=== PATIENT | female | born 1955 | race Caucasian/White ===

== ENCOUNTER 2016-06-21 14:52 | Emergency (ER) | payer MEDICARE ==
[~2016-06-21 14:52] MED LIST: Magnesium Sulfate 1 GM/2 ML VIAL*** 2 GM in Sodium Chloride 0.9% 100 ML IVPB 100 ML IV ONE
[2016-06-21] MEDS ORDERED: Sodium Chloride 0.9% 1000 ML 1,000 ML IV STA (16:12)
--- NOTE | 2016-06-21 16:19 | ERPHSYRPT ---
- History of Present Illness Time Seen by Provider: 06/21/16 16:05 Source: patient Exam Limitations: no limitations Patient Subjective Stated Complaint: pt states she has felt weak for the past 2 days. pt states she has an order at infusion center for fluids but felt to weak to go to infusion center. pt was instructed to come to er for evaluation. Triage Nursing Assessment: pt pale, warm, dry. mucus membranes moist. pt needed help to bed. Physician History: 61 y/o female with history of PUD with multiple surgeries, as well as history of hypokalemia and hypomagnesemia sent from the infusion center for weakness, dehydration and few episodes of nausea and vomiting. Pt usually receives IV potassium and magnesium. Pt also admits to feeling dizzy and confused. Timing/Duration: yesterday Severity: moderate Associated Symptoms: nausea, vomiting Allergies/Adverse Reactions: latex [Latex] Allergy (Intermediate, Verified 06/21/16 15:50) Hives fentanyl Allergy (Mild, Verified 06/21/16 15:50) Itching PATIENT STATES WHEN SHE WEARS FENTANYL PATCHES HER SKIN BECOMES ITCHY hydralazine Allergy (Verified 06/21/16 15:50) Home Medications: Buprenorphine HCl/Naloxone HCl [Suboxone 8 mg-2 mg Sl Film] 0.5 film SL TID [History] Cyanocobalamin/FA/Pyridoxine [B Complex-Folic Acid Tablet] 1 each PO DAILY 05/06 [History] Lacosamide [Vimpat] 200 mg PO BID 05/06/16 [History] Magnesium Chloride 64 mg [Slow-Mag 64 MG] 400 mg PO BID 05/06/16 [History] Naloxegol Oxalate [Movantik] 25 mg PO DAILY 05/06/16 [History] Omeprazole 20 MG [Prilosec 20 mg] 20 mg PO DAILY 05/06/16 [History] Ondansetron HCl [Zofran] 8 mg PO Q6-8HPRN PRN 05/06/16 [History] Potassium Chloride 10 Meq Tab* [Klor Con 10 MEQ] 10 meq PO QID 05/06/16 [ History] Carvedilol 3.125 mg [Coreg 3.125 MG] 3.125 mg PO BID 05/20/16 [History] Cyproheptadine HCl 4 mg PO HSPRN PRN 05/20/16 [History] Mirtazapine 30 mg [Remeron 30 mg] 30 mg PO HS 05/20/16 [History] Aspirin 81 mg PO DAILY 06/21/16 [History] Olanzapine [Zyprexa] 10 mg PO HS 06/21/16 [History] Vitamin B Complex 1 each PO DAILY 06/21/16 [History] Hx Tetanus, Diphtheria Vaccination/Date Given: Yes (up to date) Hx Influenza Vaccination/Date Given: No Hx Pneumococcal Vaccination/Date Given: No Immunizations Up to Date: Yes - Review of Systems Constitutional: Weakness, No Fever, No Chills Eyes: No Symptoms Ears, Nose, & Throat: No Symptoms Respiratory: No Cough, No Dyspnea Cardiac: No Chest Pain, No Edema, No Syncope Abdominal/Gastrointestinal: No Abdominal Pain, No Nausea, No Vomiting, No Diarrhea Genitourinary Symptoms: No Dysuria Musculoskeletal: Myalgias, No Back Pain, No Neck Pain Skin: No Rash Neurological: No Dizziness, No Focal Weakness, No Sensory Changes Psychological: No Symptoms Endocrine: No Symptoms All Other Systems: Reviewed and Negative - Past Medical History Pertinent Past Medical History: Yes Neurological History: No Pertinent History ENT History: No Pertinent History Cardiac History: Coronary Artery Disease, Myocardial Infarction ([place]) Respiratory History: COPD, Pneumonia Endocrine Medical History: No Pertinent History Musculoskeletal History: Degenerative Disk Disease, Fibromyalgia, Other GI Medical History: Ulcer History: No Pertinent History Psycho-Social History: Anxiety Female Reproductive Disorders: Endometriosis Other Medical History: had stomach removed according to pt due to ulcers 13 total surgeries. - Past Surgical History Past Surgical History: Yes Neuro Surgical History: No Pertinent History Cardiac: CABG Respiratory: No Pertinent History Gastrointestinal: Bowel Surgery, Other Genitourinary: No Pertinent History Musculoskeletal: No Pertinent History, Orthopedic Surgery Female Surgical History: Hysterectomy Other Surgical History: kyphoplasty january 2015. 13 stomach surgeries due to ulcers. chest tube recent. old port placement ("cant use it"). new Right anterior chest port placement 2016 - Social History Smoking Status: Former smoker How long have you smoked: quit 5yrs Exposure to second hand smoke: No Alcohol Use: None Drug Use: none Patient Lives Alone: No Significant Family History: no pertinent family hx - Female History Hx Now: No - Nursing Vital Signs Nursing Vital Signs: Initial Vital Signs Temperature 98.0 F Temperature Source Oral Pulse Rate 82 Respiratory Rate 18 Blood Pressure 121/69 Pain Intensity 0 - Physical Exam General Appearance: no apparent distress, alert, cachetic Eye Exam: PERRL/EOMI, eyes nml inspection Ears, Nose, Throat Exam: normal ENT inspection, TMs normal, pharynx normal, moist mucous membranes Neck Exam: normal inspection, non-tender, supple, full range of motion Respiratory Exam: normal breath sounds, lungs clear, No respiratory distress Cardiovascular Exam: regular rate/rhythm, normal heart sounds, normal peripheral pulses Gastrointestinal/Abdomen Exam: soft, normal bowel sounds, No tenderness, No mass Back Exam: normal inspection, normal range of motion, No CVA tenderness, No vertebral tenderness Extremity Exam: normal inspection, normal range of motion, pelvis stable Neurologic Exam: alert, oriented x 3, cooperative, normal mood/affect, nml cerebellar function, nml station & gait, sensation nml, No motor deficits Skin Exam: normal color, warm, dry, No rash Lymphatic Exam: No adenopathy Ordered Tests: Active Orders 24 hr Category Date Time Status CBCD [CBC W DIFF] Stat Lab 06/21/16 16:15 Completed CMP Stat Lab 06/21/16 16:15 Completed MAGNESIUM Stat Lab 06/21/16 16:15 Completed Medication Summary Discontinued Medications Generic Name Dose Route Start Last Admin Trade Name Sheila PRN Reason Stop Dose Admin Sodium Chloride 1,000 mls @ 999 mls/hr 06/21/16 16:12 06/21/16 16:25 Sodium Chloride 0.9% 1000 Ml IV 06/21/16 17:12 999 mls/hr .Q1H1M STA Administration Sodium Chloride Confirm 06/21/16 16:23 Sodium Chloride 0.9% 1000 Ml Administered 06/21/16 16:24 Dose 1,000 mls @ ud .ROUTE .STK-MED ONE Magnesium Sulfate 2 gm/ Sodium 104 mls @ ud Chloride IV 10/07/79 00:01 .STK-MED ONE Magnesium Sulfate 2 gm 06/21/16 17:22 06/21/16 17:36 Magnesium Sulfate 1 Gm/2 Ml Vial IV 06/21/16 17:23 2 gm NOW ONE Administration Lab/Rad Data: Laboratory Result Diagrams 06/21/16 16:15 06/21/16 16:15 Laboratory Results 06/21/16 06/21/1606/21/17 Range/Units 16:15 16:15 16:15 WBC 4.7 (4.0-10.5) K/mm3 RBC 3.33 L (4.1-5.4) M/mm3 Hgb 10.1 L (12.0-16.0) gm/dl Hct 31.0 L (35-47) % MCV 93.1 (78-100) fl MCH 30.3 (26-32) pg MCHC 32.6 (32-36) g/dl RDW 15.3 H (11.5-14.0) % Plt Count 345 (150-450) K/mm3 MPV 10.6 H (6-9.5) fl Gran % 58.0 (36.0-66.0) % Lymphocytes % 33.5 (24.0-44.0) % Monocytes % 8.1 (0.0-12.0) % Eosinophils % 0.2 (0.00-5.0) % Basophils % 0.2 (0.0-0.4) % Basophils # 0.01 (0-0.4) Sodium 137 (136-145) mEq/L Potassium 4.1 (3.5-5.1) mEq/L Chloride 104 (98-107) mEq/L Carbon Dioxide 23.2 (21-32) mEq/L Anion Gap 13.8 (5-15) MEQ/L BUN 17 (9-20) mg/dL Creatinine 0.64 (0.55-1.30) mg/dl Estimated GFR > 60 ML/MIN Glucose 159 H (70-110) MG/DL Calcium 8.0 L (8.5-10.1) mg/dL Magnesium 1.6 L (1.8-2.4) mg/dL Total Bilirubin 0.5 (0.2-1.0) mg/dL AST 26 (15-37) U/L ALT 21 (12-78) U/L Alkaline Phosphatase 137 H (46-116) U/L Serum Total Protein 5.4 L (6.4-8.2) gm/dL Albumin 1.7 L (3.4-5.0) g/dL - Progress Progress: improved Progress Note: 06/21/16 18:02 Pt feels better after receiving NS fluids and magnesium sulfate 2 grams IV X 1 dose. - Departure Time of Disposition: 18:03 Departure Disposition: Home Clinical Impression: Dehydration, Hypomagnesemia Condition: Stable Critical Care Time: No Instructions: Dehydration -- Adult Additional Instructions: Return to the ER if you should have worsening dizziness, weakness, nausea or vomiting
[2016-06-21] MEDS ORDERED: Sodium Chloride 0.9% 1000 ML 1,000 ML ONE (16:23)
[2016-06-21 16:28] LABS: BASOPHIL % 0.2 % (0.0-0.4); Eosinophil % 0.2 % (0.00-5.0); Lymphocytes % 33.5 % (24.0-44.0); Mean Cell Volume 93.1 fl (78-100); Mean Corpuscular Hemoglobin 30.3 pg (26-32); Mean Platelet Volume 10.6 fl (6-9.5); Monocytes % 8.1 % (0.0-12.0); Platelet Count 345 K/mm3 (150-450); Red Blood Count 3.33 M/mm3 (4.1-5.4); Red Cell Distribution Width 15.3 % (11.5-14.0); White Blood Count 4.7 K/mm3 (4.0-10.5)
[2016-06-21 17:09] VITALS: O2SAT 97
[2016-06-21 17:10] LABS: ALBUMIN 1.7 g/dL (3.4-5.0); ALKALINE PHOSPHATASE 137 U/L (46-116); ANION GAP 13.8 MEQ/L (5-15); BILIRUBIN,TOTAL 0.5 mg/dL (0.2-1.0); BLOOD UREA NITROGEN 17 mg/dL (9-20); CHLORIDE 104 mEq/L (98-107); Carbon Dioxide 23.2 mEq/L (21-32); Glucose 159 MG/DL (70-110); Potassium 4.1 mEq/L (3.5-5.1); SGOT/AST 26 U/L (15-37); SGPT/ALT 21 U/L (12-78); SODIUM 137 mEq/L (136-145); Total Protein 5.4 gm/dL (6.4-8.2)
[2016-06-21] MEDS ORDERED: Magnesium Sulfate 1 GM/2 ML VIAL IV ONE (17:22)
[2016-06-21 18:32] VITALS: BP 126/55; PULSE 74
== END 2016-06-21 18:30 | disposition home or self-care (01) ==
LOC: ED 14:52
DX: E86.0 Dehydration (principal); E83.42 Hypomagnesemia; R11.2 Nausea with vomiting, unspecified; R42 Dizziness and giddiness; R41.0 Disorientation, unspecified; Z79.899 Other long term (current) drug therapy; Z95.1 Presence of aortocoronary bypass graft
CPT/HCPCS: 36000; 36415; 80053; 83735; 85025; 96360; 96365; 99283; J1642; J3475

== ENCOUNTER 2016-08-12 08:46 | Inpatient (IN) | payer MEDICARE ==
--- NOTE | 2016-08-12 09:07 | ERPHSYRPT ---
- History of Present Illness Time Seen by Provider: 08/12/16 08:52 Source: patient, family () Exam Limitations: no limitations Patient Subjective Stated Complaint: pt here for swelling to both hands and feet for a week, she also got weak and fell at home, no injury was caught by , she also states that she not eat well for a week.vomiting off and on, which is normal for her, pt able to keep meds down Triage Nursing Assessment: pt alert, skin w/d/pale,resp easy, pt very thin,skin dry, mucus membranes slightly dry, pt weak and had to be helped out of wc, Physician History: acute weakness today; weight loss over several months; decreased appetite; acute swelling of arms and feet; no injury or fall; this am she collapsed but was caught without injury by her ; she was too weak to stand;she has noticed a marked decrease in urine output this week. no pain or burning Timing/Duration: today (collapsed and wekaness and swelling of arms and feet), day(s) (2-3 days decreased urine ouptput), week(s) (weight loss), sudden Severity: severe Modifying Factors: Improves With: eating (not eating well) Associated Symptoms: nausea, vomiting (x 1 yesterday after taking pain meds; not unusual), loss of appetite (chronic), No abdominal pain, No shortness of breath, No chest pain Allergies/Adverse Reactions: latex [Latex] Allergy (Intermediate, Verified 06/21/16 15:50) Hives fentanyl Allergy (Mild, Verified 06/21/16 15:50) Itching PATIENT STATES WHEN SHE WEARS FENTANYL PATCHES HER SKIN BECOMES ITCHY hydralazine Allergy (Verified 06/21/16 15:50) hydrocortisone Adverse Reaction (Verified 08/12/16 09:03) Home Medications: Buprenorphine HCl/Naloxone HCl [Suboxone 8 mg-2 mg Sl Film] 0.5 film SL TID [History] Cyanocobalamin/FA/Pyridoxine [B Complex-Folic Acid Tablet] 1 each PO DAILY 05/06 [History] Lacosamide [Vimpat] 100 mg PO BID 05/06/16 [History] Magnesium Chloride 64 mg [Slow-Mag 64 MG] 400 mg PO BID 05/06/16 [History] Omeprazole 20 MG [Prilosec 20 mg] 20 mg PO DAILY 05/06/16 [History] Ondansetron HCl [Zofran] 8 mg PO Q6-8HPRN PRN 05/06/16 [History] Potassium Chloride 10 Meq Tab* [Klor Con 10 MEQ] 10 meq PO QID 05/06/16 [ History] Cyproheptadine HCl 4 mg PO HSPRN PRN 05/20/16 [History] Mirtazapine 30 mg [Remeron 30 mg] 30 mg PO HS 05/20/16 [History] Olanzapine [Zyprexa] 10 mg PO HS 06/21/16 [History] Vitamin B Complex 1 each PO DAILY 06/21/16 [History] Hx Tetanus, Diphtheria Vaccination/Date Given: Yes (up to date) Hx Influenza Vaccination/Date Given: No Hx Pneumococcal Vaccination/Date Given: No Immunizations Up to Date: Yes - Review of Systems Constitutional: Malaise, Weakness, Weight Loss Eyes: No Symptoms Ears, Nose, & Throat: No Symptoms Respiratory: No Cough, No Dyspnea, No Wheezing Cardiac: Edema, No Chest Pain, No Palpitations, No Syncope Abdominal/Gastrointestinal: Nausea, Vomiting (post meds), Constipation, No Abdominal Pain, No Diarrhea, No Hematemesis, No Melena Genitourinary Symptoms: No Dysuria, No Frequency, No Hematuria, No Incontinence , No Urinary Retention, No Flank Pain, No Vaginal Bleeding Musculoskeletal: No Symptoms Skin: No Symptoms Neurological: No Symptoms Psychological: No Symptoms Endocrine: No Symptoms Hematologic/Lymphatic: No Symptoms Immunological/Allergic: No Symptoms - Past Medical History Pertinent Past Medical History: Yes Neurological History: No Pertinent History ENT History: No Pertinent History Cardiac History: Coronary Artery Disease, Myocardial Infarction ([place]) Respiratory History: COPD, Pneumonia Endocrine Medical History: No Pertinent History Musculoskeletal History: Degenerative Disk Disease, Fibromyalgia, Other GI Medical History: Ulcer History: No Pertinent History Psycho-Social History: Anxiety Female Reproductive Disorders: Endometriosis Other Medical History: had stomach removed according to pt due to ulcers 13 total surgeries. - Past Surgical History Past Surgical History: Yes Neuro Surgical History: No Pertinent History Cardiac: CABG Respiratory: No Pertinent History Gastrointestinal: Bowel Surgery, Other Genitourinary: No Pertinent History Musculoskeletal: No Pertinent History, Orthopedic Surgery Female Surgical History: Hysterectomy Other Surgical History: kyphoplasty january 2015. 13 stomach surgeries due to ulcers. chest tube recent. old port placement ("cant use it"). new Right anterior chest port placement 2016 - Social History Smoking Status: Never smoker How long have you smoked: quit 5yrs Exposure to second hand smoke: Yes Alcohol Use: None Drug Use: none Patient Lives Alone: No Significant Family History: no pertinent family hx - Female History Hx Last Menstrual Period: post Hx Now: No - Nursing Vital Signs Nursing Vital Signs: Initial Vital Signs Temperature 98.0 F Temperature Source Oral Pulse Rate 68 Respiratory Rate 16 Blood Pressure [Right Arm] 95/54 Pain Intensity 0 - Physical Exam General Appearance: moderate distress, alert, thin (cachectic) Eye Exam: PERRL/EOMI, eyes nml inspection Ears, Nose, Throat Exam: normal ENT inspection, TMs normal, pharynx normal, dry mucous membranes, No pharyngeal erythema Neck Exam: normal inspection, non-tender, supple, full range of motion, No meningismus, No JVD Respiratory Exam: normal breath sounds, lungs clear, airway intact, No chest tenderness, No respiratory distress Cardiovascular Exam: regular rate/rhythm, normal heart sounds, normal peripheral pulses, capillary refill 2-3 sec, No murmur Gastrointestinal/Abdomen Exam: soft, normal bowel sounds, No tenderness, No distention, No guarding, No pulsatile mass, No rebound, No organomegaly Pelvic Exam: deferred Rectal Exam: deferred Back Exam: normal inspection, normal range of motion, No CVA tenderness, No vertebral tenderness, No rash Extremity Exam: normal range of motion, pelvis stable, pedal edema (feet only), No normal inspection (edema of bilateral forarms and feet), No calf tenderness, No paralysis, No fer's sign, No joint swelling Neurologic Exam: alert, oriented x 3, cooperative, custodial aide II-XII nml as tested, normal mood/affect, sensation nml, No nml station & gait (too weak to stand by self) Skin Exam: normal color, warm, dry, other (poor tugur ), No rash Lymphatic Exam: No adenopathy - Course Nursing assessment & vital signs reviewed: Yes Ordered Tests: Active Orders 24 hr Category Date Time Status Cath for Specimen-Straight STAT Care 08/12/16 08:59 Active Re-Check Vital Signs STAT Care 08/12/16 08:59 Active AMYLASE Stat Lab 08/12/16 09:10 Completed CBC W DIFF Stat Lab 08/12/16 09:10 Completed CMP Stat Lab 08/12/16 09:10 Completed LIPASE Stat Lab 08/12/16 09:10 Completed Lactic Acid Urgent Lab 08/12/16 08:59 Completed UA W/ MICROSCOPIC Stat Lab 08/12/16 09:17 Completed Transfer Order Routine Transfer 08/12/16 11:31 Ordered Medication Summary Generic Name Dose Route Start Last Admin Trade Name Freq PRN Reason Stop Dose Admin Sodium Chloride 1,000 mls @ 50 mls/hr 08/12/16 09:00 08/12/16 09:22 Sodium Chloride 0.9% 1000 Ml IV 09/11/16 08:59 50 mls/hr .Q20H TWILA Administration Ceftriaxone Sodium/Dextrose 50 mls @ 100 mls/hr 08/12/16 11:14 08/12/16 11:26 Rocephin 1 Gm-D5w 50 Ml Bag IV 08/12/16 11:43 100 mls/hr STAT ONE Administration Discontinued Medications Generic Name Dose Route Start Last Admin Trade Name Freq PRN Reason Stop Dose Admin Sodium Chloride Confirm 08/12/16 09:15 Sodium Chloride 0.9% 1000 Ml Administered 08/12/16 09:16 Dose 1,000 mls @ ud .ROUTE .STK-MED ONE Ceftriaxone Sodium/Dextrose Confirm 08/12/16 11:25 Rocephin 1 Gm-D5w 50 Ml Bag Administered 08/12/16 11:26 Dose 50 mls @ ud IV .STK-MED ONE Ondansetron HCl 4 mg 08/12/16 09:15 08/12/16 09:22 Zofran 4 Mg/2 Ml Vial IV 08/12/16 09:16 4 mg STAT ONE Administration Ondansetron HCl Confirm 08/12/16 09:15 Zofran 4 Mg/2 Ml Vial Administered 08/12/16 09:16 Dose 4 mg .ROUTE .STK-MED ONE Ondansetron HCl 4 mg 08/12/16 09:21 08/12/16 09:23 Zofran 4 Mg/2 Ml Vial IV 08/12/16 09:22 Not Given STAT ONE Lab/Rad Data: Laboratory Result Diagrams 08/12/16 09:10 08/12/16 09:10 Laboratory Results 08/12/16 08/12/16 08/12/16 Range/Units 09:17 09:10 09:10 WBC 4.8 (4.0-10.5) K/mm3 RBC 3.05 L (4.1-5.4) M/mm3 Hgb 9.6 L (12.0-16.0) gm/dl Hct 29.0 L (35-47) % MCV 95.1 (78-100) fl MCH 31.4 (26-32) pg MCHC 33.1 (32-36) g/dl RDW 16.4 H (11.5-14.0) % Plt Count 338 (150-450) K/mm3 MPV 10.5 H (6-9.5) fl Gran % 75.2 H (36.0-66.0) % Lymphocytes % 16.2 L (24.0-44.0) % Monocytes % 8.4 (0.0-12.0) % Eosinophils % 0.0 (0.00-5.0) % Basophils % 0.2 (0.0-0.4) % Basophils # 0.01 (0-0.4) Sodium 144 (136-145) mEq/L Potassium 4.0 (3.5-5.1) mEq/L Chloride 110 H (98-107) mEq/L Carbon Dioxide 24.9 (21-32) mEq/L Anion Gap 13.2 (5-15) MEQ/L BUN 16 (9-20) mg/dL Creatinine 0.48 L (0.55-1.30) mg/dl Estimated GFR > 60 ML/MIN Glucose 116 H (70-110) MG/DL Lactic Acid (0.4-2.0) Calcium 7.1 L (8.5-10.1) mg/dL Total Bilirubin 0.2 (0.2-1.0) mg/dL AST 26 (15-37) U/L ALT 25 (12-78) U/L Alkaline Phosphatase 125 H (46-116) U/L Serum Total Protein 4.3 L (6.4-8.2) gm/dL Albumin 1.1 L (3.4-5.0) g/dL Amylase 13 L (25-115) U/L Lipase 27 L (73-393) U/L Ur Collection Type CATH Urine Color DARK YELLOW (YELLOW) Urine Appearance CLEAR (CLEAR) Urine pH 5.5 (5-6) Ur Specific Barnett 1.020 (1.005-1.025) Urine Protein NEGATIVE (Negative) Urine Glucose (UA) NEGATIVE (NEGATIVE) mg/dL Urine Ketones TRACE (NEGATIVE) Urine Nitrite POSITIVE (NEGATIVE) Urine Bilirubin SMALL (NEGATIVE) Urine Urobilinogen 2 (0-1) mg/dL Urine WBC (Auto) NEGATIVE (NEGATIVE) Urine RBC (Auto) NEGATIVE (0-5) Harsh/ul Urine Microscopic RBC 0-2 (0-2) /HPF Urine Microscopic WBC 0-2 (0-5) /HPF Ur Epithelial Cells FEW (FEW) /HPF Urine Bacteria MANY (NEGATIVE) /HPF Specimen Received 08/12 91408/12/16 Range/Units 08:59 WBC (4.0-10.5) K/mm3 RBC (4.1-5.4) M/mm3 Hgb (12.0-16.0) gm/dl Hct (35-47) % MCV (78-100) fl MCH (26-32) pg MCHC (32-36) g/dl RDW (11.5-14.0) % Plt Count (150-450) K/mm3 MPV (6-9.5) fl Gran % (36.0-66.0) % Lymphocytes % (24.0-44.0) % Monocytes % (0.0-12.0) % Eosinophils % (0.00-5.0) % Basophils % (0.0-0.4) % Basophils # (0-0.4) Sodium (136-145) mEq/L Potassium (3.5-5.1) mEq/L Chloride (98-107) mEq/L Carbon Dioxide (21-32) mEq/L Anion Gap (5-15) MEQ/L BUN (9-20) mg/dL Creatinine (0.55-1.30) mg/dl Estimated GFR ML/MIN Glucose (70-110) MG/DL Lactic Acid 1.1 (0.4-2.0) Calcium (8.5-10.1) mg/dL Total Bilirubin (0.2-1.0) mg/dL AST (15-37) U/L ALT (12-78) U/L Alkaline Phosphatase (46-116) U/L Serum Total Protein (6.4-8.2) gm/dL Albumin (3.4-5.0) g/dL Amylase (25-115) U/L Lipase (73-393) U/L Ur Collection Type Urine Color (YELLOW) Urine Appearance (CLEAR) Urine pH (5-6) Ur Specific Barnett (1.005-1.025) Urine Protein (Negative) Urine Glucose (UA) (NEGATIVE) mg/dL Urine Ketones (NEGATIVE) Urine Nitrite (NEGATIVE) Urine Bilirubin (NEGATIVE) Urine Urobilinogen (0-1) mg/dL Urine WBC (Auto) (NEGATIVE) Urine RBC (Auto) (0-5) Harsh/ul Urine Microscopic RBC (0-2) /HPF Urine Microscopic WBC (0-5) /HPF Ur Epithelial Cells (FEW) /HPF Urine Bacteria (NEGATIVE) /HPF Specimen Received reviewed - Progress Progress: unchanged (after recheck), re-examined Progress Note: 08/12/16 09:12 will start IV and check labs and urine; renal function; will IV hydrate and recheck 08/12/16 09:33 patient rechecked, some nausea, will give some zofran and recheck 08/12/16 11:19 reviewed findings with patient; will start ATBs; DR Kaveh Shah consulted and will admit; Patient and family notified Discussed with : Karina (consulted and will admit) Will see patient in: hospital (observation) Counseled pt/family regarding: lab results, diagnosis, need for follow-up - Departure Time of Disposition: 11:20 Departure Disposition: Observation Clinical Impression: UTI (urinary tract infection), Weakness Condition: Serious Critical Care Time: No Referrals: LUNA SHAH [Primary Care Provider] -
[2016-08-12] MEDS ORDERED: Sodium Chloride 0.9% 1000 ML 1,000 ML ONE (09:15)
[2016-08-12] MEDS ORDERED: Zofran 4 MG/2 ML VIAL IV ONE ×2 (09:15→09:21)
[2016-08-12] MEDS ORDERED: Zofran 4 MG/2 ML VIAL ONE (09:15)
[2016-08-12 09:21] LABS: BASOPHIL % 0.2 % (0.0-0.4); Granulocytes % 75.2 % (36.0-66.0); Lymphocytes % 16.2 % (24.0-44.0); Mean Cell Volume 95.1 fl (78-100); Mean Platelet Volume 10.5 fl (6-9.5); Monocytes % 8.4 % (0.0-12.0); Platelet Count 338 K/mm3 (150-450); Red Blood Count 3.05 M/mm3 (4.1-5.4); Red Cell Distribution Width 16.4 % (11.5-14.0); White Blood Count 4.8 K/mm3 (4.0-10.5)
[2016-08-12] MEDS: Sodium Chloride 0.9% 1000 ML 1,000 ML IV SCH ×2 (09:22→23:03)
[2016-08-12 09:26] LABS: Mean Corpuscular Hemoglobin 31.4 pg (26-32)
[2016-08-12 09:29] LABS: Collection Type CATH
[2016-08-12 09:30] LABS: COMPLETE URINE MICROSCOPIC? YES; Ph 5.5 (5-6)
[2016-08-12 09:35] LABS: Bacteria MANY /HPF (NEGATIVE); Epithelial Cells FEW /HPF (FEW); WBC 0-2 /HPF (0-5)
[2016-08-12 09:54] LABS: ALBUMIN 1.1 g/dL (3.4-5.0); ALKALINE PHOSPHATASE 125 U/L (46-116); ANION GAP 13.2 MEQ/L (5-15); BILIRUBIN,TOTAL 0.2 mg/dL (0.2-1.0); BLOOD UREA NITROGEN 16 mg/dL (9-20); CHLORIDE 110 mEq/L (98-107); Carbon Dioxide 24.9 mEq/L (21-32); Glucose 116 MG/DL (70-110); LIPASE 27 U/L (73-393); SGOT/AST 26 U/L (15-37); SGPT/ALT 25 U/L (12-78); SODIUM 144 mEq/L (136-145); Total Protein 4.3 gm/dL (6.4-8.2)
[2016-08-12] MEDS ORDERED: ROCEPHIN 1 Gm-D5w 50 ml Bag** 50 ML IV ONE ×2 (11:14→11:25)
[2016-08-12] MEDS ORDERED: Sodium Chloride 0.9% 1000 ML 1,000 ML IV SCH (11:51)
[2016-08-12] MEDS ORDERED: THIAMINE 200 MG/2 ML IV ONE (12:24)
[2016-08-12] MEDS ORDERED: VITAMIN D PO SCH (13:15)
[2016-08-12] MEDS: PATIENT OWN MEDICATION SL SCH ×2 (14:01→18:20)
[2016-08-12] MEDS: VITA-BEE WITH C PO SCH (14:04)
[2016-08-12] MEDS: PATIENT OWN MEDICATION PO SCH ×2 (14:04→23:13)
[2016-08-12] MEDS: Phenergan 25 MG INJ IV PRN (14:43)
[2016-08-12] MEDS ORDERED: [UNRECOGNIZED DRUG - OTHER] SL SCH (15:00)
[2016-08-12] MEDS ORDERED: BUPRENORPHINE HCL SL SCH (15:00)
[2016-08-12] MEDS ORDERED: NALOXONE HCL SL SCH (15:00)
[2016-08-12] MEDS: VITAMIN D PO SCH (15:54)
--- NOTE | 2016-08-12 18:01 | PCM.HP ---
History of Present Illness - Chief Complaint Chief Complaint: uti Date: 08/12/16 History of Present Illness: is a 61 year old female. with severe protein calorie malnutrition and now diffuse edema in upper and lower extremities. She has stopped eating almost completely now. She was very weak and fell at home today and was unable to get up. She was taken to ED. She is nauseated and cannot get any food in she states due to this. She has chronic abdominal problems after multiple surgeries. - Review of Systems Constitutional: Fatigue, No Fever, No Chills Ears, Nose, & Throat: No Sinus Drainage, No Mouth Pain, No Mouth Swelling, No Throat Swelling Respiratory: No Cough, No Orthopnea, No Short Of Breath Cardiac: Edema, No Chest Pain, No Palpitations Abdominal/Gastrointestinal: Abdominal Pain, Nausea, Vomiting, No Diarrhea Genitourinary Symptoms: Dysuria Musculoskeletal: Arthralgias, Back Pain, Fall Skin: No Cellulitis, No Rash Neurological: Dizziness Psychological: Depression, No Drug Abuse Hematologic/Lymphatic: Anemia, No Blood Clots Medications & Allergies Home Medications: Home Medication List Buprenorphine HCl/Naloxone HCl [Suboxone 8 mg-2 mg Sl Film] 0.5 film SL TID [History Confirmed 08/12/16] Lacosamide [Vimpat] 100 mg PO BID 05/06/16 [History Confirmed 08/12/16] Magnesium Chloride 64 mg [Slow-Mag 64 MG] 400 mg PO DAILY 05/06/16 [ History Confirmed 08/12/16] Omeprazole 20 MG [Prilosec 20 mg] 20 mg PO DAILY 05/06/16 [History Confirmed 11/23] Ondansetron HCl [Zofran] 8 mg PO Q6-8HPRN PRN 05/06/16 [History Confirmed ] Potassium Chloride 10 Meq Tab* [Klor Con 10 MEQ] 10 meq PO BID 05/06/16 [ History Confirmed 08/12/16] Cyproheptadine HCl 4 mg PO HSPRN PRN 05/20/16 [History Confirmed 08/12/16] Mirtazapine 30 mg [Remeron 30 mg] 30 mg PO HS 05/20/16 [History Confirmed 08/12/16] Apixaban [Eliquis] 5 mg PO BID #60 tablet 05/23/16 [Rx Confirmed 08/12/16] Olanzapine [Zyprexa] 10 mg PO HS 06/21/16 [History Confirmed 08/12/16] Vitamin B Complex 1 each PO DAILY 06/21/16 [History Confirmed 08/12/16] Cholecalciferol (Vitamin D3) [Vitamin D] 1,000 unit PO WEEKLY 08/12/16 [ History Confirmed 08/12/16] Hydroxyzine HCl 25 mg [Atarax 25 mg] 25 mg PO TID 08/12/16 [History Confirmed 08/12/16] Magnesium Chloride 64 mg [Slow-Mag 64 MG] 64 mg PO TID 08/12/16 [History Confirmed 08/12/16] Allergies/Adverse Reactions: Allergies Allergy/AdvReac Type Severity Reaction Status Date / Time latex [Latex] Allergy Intermediate Hives Verified 06/21/16 15:50 fentanyl Allergy Mild Itching Verified 06/21/16 15:50 hydralazine Allergy Verified 06/21/16 15:50 hydrocortisone AdvReac Verified 08/12/16 09:03 - Past Medical History Past Medical History: Yes Neurological History: No Pertinent History ENT History: No Pertinent History Cardiac History: Coronary Artery Disease, Myocardial Infarction (DE) Respiratory History: COPD, Pneumonia Endocrine Medical History: No Pertinent History Musculoskelatal History: Degenerative Disk Disease, Fibromyalgia, Other GI Medical History: Ulcer History: No Pertinent History Pyscho-Social History: Anxiety Reproductive Disorders: Endometriosis Comment: had stomach removed according to pt due to ulcers 13 total surgeries. - Female History Hx Last Menstrual Period: post Are you now?: No - Past Surgical History Past Surgical History: Yes Neuro Surgical History: No Pertinent History Cardiac History: CABG Respiratory Surgery: No Pertinent History GI Surgical History: Bowel Surgery, Other Genitourinary Surgical Hx: No Pertinent History Musculskeletal Surgical Hx: No Pertinent History, Orthopedic Surgery Female Surgical History: Hysterectomy Other Surgical History: kyphoplasty january 2015. 13 stomach surgeries due to ulcers. chest tube recent. old port placement ("cant use it"). new Right anterior chest port placement 2015 - Social History Smoking Status: Never smoker How long have you smoked: quit 5yrs Exposure to second hand smoke: No Alcohol: None Drug Use: none Significant Family History: no pertinent family hx - Physical Exam Vital Signs: Vital Signs - 24 hr Temp Pulse Resp BP Pulse Ox 08/12/16 16:00 98.0 F 86 16 102/68 93 L 08/12/16 12:00 97.9 F 77 16 118/73 97 08/12/16 10:50 68 16 95/54 97 08/12/16 10:02 78 16 99/58 97 08/12/16 09:00 98.0 F 97 H 16 115/73 96 General Appearance: no apparent distress, cachetic Neurologic Exam: alert, oriented x 3, cooperative, depressed mood/affect, No slurred speech Eye Exam: pale conjunctivae, No scleral icterus Ears, Nose, Throat Exam: dry mucous membranes Neck Exam: non-tender, supple Respiratory Exam: normal breath sounds, lungs clear Cardiovascular Exam: regular rate/rhythm, normal heart sounds Gastrointestinal/Abdomen Exam: soft, normal bowel sounds, No tenderness, No distention Extremity Exam: pedal edema, other (bilateral edema of arms and legs peripherally) Skin Exam: warm, dry, No rash Assessment/Plan (1) UTI (urinary tract infection) Current Visit: Yes Status: Acute Assessment & Plan: treat with the ceftriaxone await culture she was given iv fluids for the dehydration in ED she is very weak and severely malnurished she was given thiamine IV will put an NG in and try tube feedings slow continuous will discuss with Surgery if she can have a PEG tube given her previous surgeries and her history of gastrectomy if cannot tolerate the NG will need to do TPN for her sever malnourished state now she is unable to walk on her own unable to care for herself she has severe edema secondary to her lack of protein. Code(s): N39.0 - URINARY TRACT INFECTION, SITE NOT SPECIFIED (2) Dehydration Current Visit: Yes Status: Acute Code(s): E86.0 - DEHYDRATION (3) Weakness Current Visit: Yes Status: Acute Code(s): R53.1 - WEAKNESS (4) Severe protein-calorie malnutrition Current Visit: Yes Status: Acute Code(s): E43 - UNSPECIFIED SEVERE PROTEIN- CALORIE MALNUTRITION (5) Anemia Current Visit: Yes Status: Chronic Qualifiers: Anemia type: unspecified type Qualified Code(s): D64.9 - Anemia, unspecified Code(s): D64.9 - ANEMIA, UNSPECIFIED (6) Short gut syndrome Current Visit: Yes Status: Chronic Code(s): K91.2 - POSTSURGICAL MALABSORPTION, NOT ELSEWHERE CLASSIFIED (7) Seizure disorder Current Visit: Yes Status: Chronic Code(s): G40.909 - EPILEPSY, UNSP, NOT INTRACTABLE, WITHOUT STATUS EPILEPTICUS (8) Nutritional disorder Current Visit: Yes Status: Chronic Code(s): E63.9 - NUTRITIONAL DEFICIENCY, UNSPECIFIED (9) Depression Current Visit: Yes Status: Chronic Code(s): F32.9 - MAJOR DEPRESSIVE DISORDER, SINGLE EPISODE, UNSPECIFIED (10) S/P CABG (coronary artery bypass graft) Current Visit: Yes Status: Chronic Code(s): Z95.1 - PRESENCE OF AORTOCORONARY BYPASS GRAFT
[2016-08-12] MEDS: Zofran 4 MG/2 ML VIAL IV PRN (18:16)
[2016-08-12] MEDS: Reglan 10 MG/2 ML IV SCH ×2 (18:36→22:52)
[2016-08-12] MEDS ORDERED: LACOSAMIDE 100 MG PO SCH (22:00)
[2016-08-12] MEDS ORDERED: zyPREXA 5MG TABLET PO SCH (22:00)
[2016-08-12] MEDS: ELIQUIS PO SCH (23:13)
[2016-08-12] MEDS: Klor Con 10 MEQ PO SCH (23:13)
[2016-08-12] MEDS: REMERON 30 MG PO SCH (23:20)
[2016-08-13] MEDS: PATIENT OWN MEDICATION SL SCH ×3 (05:49→20:52)
[2016-08-13] MEDS: Zofran 4 MG/2 ML VIAL IV PRN (06:42)
--- NOTE | 2016-08-13 06:57 | PCM.NOTE ---
Date and Time: 08/13/1652 Subjective Assessment: she has had a little nausea and dry heave since the NG in but no vomiting. She is tolerating the 20 mL/h feed thus far. She has not hada bowel movmeent she has some pain in the back of her throat from the tube Objective Exam General Appearance: cachetic Neurologic Exam: alert, cooperative, depressed mood/affect Skin Exam: warm, dry Eye Exam: pale conjunctivae Ears, Nose, Throat Exam: dry mucous membranes Neck Exam: non-tender, supple Respiratory Exam: normal breath sounds, lungs clear Cardiovascular Exam: regular rate/rhythm, normal heart sounds Gastrointestinal/Abdomen Exam: soft, normal bowel sounds, No tenderness, No distention, No guarding Extremity Exam: normal inspection, pedal edema, swelling OBJECTIVE DATA Vital Signs: Vital Signs - 24 hr Temp Pulse Resp BP Pulse Ox 08/13/16 04:00 98.5 F 90 16 162/81 94 L 08/12/16 23:54 98.2 F 89 16 168/109 93 L 08/12/16 19:29 98.5 F 100 H 19 127/93 92 L 08/12/16 16:00 98.0 F 86 16 102/68 93 L 08/12/16 12:00 97.9 F 77 16 118/73 97 08/12/16 10:50 68 16 95/54 97 08/12/16 10:02 78 16 99/58 97 08/12/16 09:00 98.0 F 97 H 16 115/73 96 Pain Assessment - Last Documented Pain Intensity 0 Pain Scale Used 0-10 Pain Scale Intake and Output: Intake & Output 08/10/16 08/11/16 08/12/16 08/13/16 11:59 11:59 11:59 11:59 Intake Total 801 Output Total 100 Balance 701 Weight 34.881 kg 34.881 kg Assessment/Plan (1) UTI (urinary tract infection) Current Visit: Yes Status: Acute Assessment & Plan: rocephin continue slow NG feeds monitor for refeeding syndrome if tolerating NG feeds will discuss possible percutaneous feeding tube placement. With surgery discussed with the patient given her extensive abdominal surgeries in the past that would be up to the surgeons and would like to get her some nutrition first NG so she can heal and tolerate the procedure better. Code(s): N39.0 - URINARY TRACT INFECTION, SITE NOT SPECIFIED (2) Dehydration Current Visit: Yes Status: Acute Code(s): E86.0 - DEHYDRATION (3) Weakness Current Visit: Yes Status: Acute Code(s): R53.1 - WEAKNESS (4) Severe protein-calorie malnutrition Current Visit: Yes Status: Acute Code(s): E43 - UNSPECIFIED SEVERE PROTEIN- CALORIE MALNUTRITION (5) Anemia Current Visit: Yes Status: Chronic Qualifiers: Anemia type: unspecified type Qualified Code(s): D64.9 - Anemia, unspecified Code(s): D64.9 - ANEMIA, UNSPECIFIED (6) Short gut syndrome Current Visit: Yes Status: Chronic Code(s): K91.2 - POSTSURGICAL MALABSORPTION, NOT ELSEWHERE CLASSIFIED (7) Seizure disorder Current Visit: Yes Status: Chronic Code(s): G40.909 - EPILEPSY, UNSP, NOT INTRACTABLE, WITHOUT STATUS EPILEPTICUS (8) Nutritional disorder Current Visit: Yes Status: Chronic Code(s): E63.9 - NUTRITIONAL DEFICIENCY, UNSPECIFIED (9) Depression Current Visit: Yes Status: Chronic Code(s): F32.9 - MAJOR DEPRESSIVE DISORDER, SINGLE EPISODE, UNSPECIFIED (10) S/P CABG (coronary artery bypass graft) Current Visit: Yes Status: Chronic Code(s): Z95.1 - PRESENCE OF AORTOCORONARY BYPASS GRAFT
[2016-08-13] MEDS: ROCEPHIN 1 Gm-D5w 50 ml Bag** 50 ML IV SCH (07:44)
[2016-08-13] MEDS: PATIENT OWN MEDICATION PO SCH ×2 (09:56→20:51)
[2016-08-13] MEDS: ELIQUIS PO SCH ×2 (09:56→20:50)
[2016-08-13] MEDS: Klor Con 10 MEQ PO SCH ×3 (09:56→21:45)
[2016-08-13] MEDS: VITAMIN B-1 100 MG PO SCH (09:57)
[2016-08-13] MEDS: Protonix 40MG Tablet PO SCH (09:57)
[2016-08-13] MEDS: VITA-BEE WITH C PO SCH (09:57)
[2016-08-13] MEDS: Reglan 10 MG/2 ML IV SCH ×3 (09:57→20:51)
[2016-08-13] MEDS ORDERED: MEDICATION INTERVENTION MC SCH (10:00)
[2016-08-13] MEDS ORDERED: NON-FORMULARY ITEM (Omeprazole 20 Mg [Prilosec 20 Mg] 20 MG) PO SCH (10:00)
[2016-08-13] MEDS ORDERED: NON-FORMULARY ITEM (Vitamin B Complex [Vitamin B Complex] 1 EACH) PO SCH (10:00)
[2016-08-13] MEDS: Phenergan 25 MG INJ IV PRN ×2 (10:09→21:16)
[2016-08-13] MEDS: Sodium Chloride 0.9% 1000 ML 1,000 ML IV SCH (18:38)
[2016-08-13] MEDS: REMERON 30 MG PO SCH (20:50)
[2016-08-14] MEDS: PATIENT OWN MEDICATION SL SCH ×3 (05:09→18:00)
[2016-08-14 06:01] LABS: Mean Cell Volume 95.4 fl (78-100); Mean Corpuscular Hemoglobin 31.2 pg (26-32); Mean Platelet Volume 10.3 fl (6-9.5); Platelet Count 307 K/mm3 (150-450); Red Blood Count 2.85 M/mm3 (4.1-5.4); Red Cell Distribution Width 16.2 % (11.5-14.0); White Blood Count 4.6 K/mm3 (4.0-10.5)
[2016-08-14 06:37] LABS: ALKALINE PHOSPHATASE 116 U/L (46-116); ANION GAP 8.6 MEQ/L (5-15); BILIRUBIN,TOTAL 0.1 mg/dL (0.2-1.0); BLOOD UREA NITROGEN 11 mg/dL (9-20); CHLORIDE 109 mEq/L (98-107); Carbon Dioxide 26.3 mEq/L (21-32); Glucose 129 MG/DL (70-110); MAGNESIUM 1.4 mg/dL (1.8-2.4); PHOSPHOROUS 2.6 mg/dL (2.6-4.7); Potassium 3.2 mEq/L (3.5-5.1); SGOT/AST 19 U/L (15-37); SGPT/ALT 14 U/L (12-78); SODIUM 141 mEq/L (136-145); Total Protein 3.9 gm/dL (6.4-8.2)
[2016-08-14] MEDS ORDERED: POTASSIUM CHLORIDE 20 mEq IN WATER 100ML 100 ML IV ONE (06:59)
--- NOTE | 2016-08-14 07:32 | PCM.NOTE ---
Date and Time: 08/14/16728 Subjective Assessment: she vomitted several times yesterday about 200 cc which is about 10 hours worth of her feeding. SHe has severe pain from the NG but no abdominal pains. she states no one would place percutaneous feeding tube in her past confirmed with her after they were referred many places. Objective Exam General Appearance: cachetic, thin Neurologic Exam: alert, oriented x 3, depressed mood/affect Skin Exam: warm, dry Eye Exam: No pale conjunctivae Neck Exam: non-tender, supple Respiratory Exam: normal breath sounds, lungs clear Cardiovascular Exam: regular rate/rhythm, normal heart sounds, No murmur Gastrointestinal/Abdomen Exam: soft, normal bowel sounds, No tenderness Extremity Exam: pedal edema, swelling OBJECTIVE DATA Vital Signs: Vital Signs - 24 hr Temp Pulse Resp BP Pulse Ox 08/14/16 04:00 98.0 F 89 18 108/66 97 08/14/16 00:00 97.6 F 89 15 121/77 94 L 08/13/16 20:00 97.6 F 83 16 105/68 94 L 08/13/16 16:00 97.6 F 88 16 102/63 95 08/13/16 11:18 98.3 F 87 18 100/61 97 08/13/16 07:36 97.9 F 107 H 18 135/85 96 Pain Assessment - Last Documented Pain Scale Used 0-10 Pain Scale Intake and Output: Intake & Output 08/11/16 08/12/16 08/13/16 08/14/16 11:59 11:59 11:59 11:59 Intake Total 1130 2134 Output Total 100 Balance 1030 2134 Weight 37.92 kg 37.92 kg Lab Results: Lab Results-Last 24 Hours 08/14/16 08/14/16 Range/Units 05:25 05:25 WBC 4.6 (4.0-10.5) K/mm3 RBC 2.85 L (4.1-5.4) M/mm3 Hgb 8.9 L (12.0-16.0) gm/dl Hct 27.2 L (35-47) % MCV 95.4 (78-100) fl MCH 31.2 (26-32) pg MCHC 32.7 (32-36) g/dl RDW 16.2 H (11.5-14.0) % Plt Count 307 (150-450) K/mm3 MPV 10.3 H (6-9.5) fl Sodium 141 (136-145) mEq/L Potassium 3.2 L (3.5-5.1) mEq/L Chloride 109 H (98-107) mEq/L Carbon Dioxide 26.3 (21-32) mEq/L Anion Gap 8.6 (5-15) MEQ/L BUN 11 (9-20) mg/dL Creatinine 0.33 L (0.55-1.30) mg/dl Estimated GFR > 60 ML/MIN Glucose 129 H (70-110) MG/DL Calcium 6.7 L (8.5-10.1) mg/dL Phosphorus 2.6 (2.6-4.7) mg/dL Magnesium 1.4 L (1.8-2.4) mg/dL Total Bilirubin 0.1 L (0.2-1.0) mg/dL AST 19 (15-37) U/L ALT 14 (12-78) U/L Alkaline Phosphatase 116 (46-116) U/L Serum Total Protein 3.9 L (6.4-8.2) gm/dL Albumin 1.0 L (3.4-5.0) g/dL Multi-Disciplinary Progress Notes: Multi-Disciplinary Progress Notes 08/13/16 13:50 (created 08/13/16 14:50) Case Management Note by Silvia Sebastian REFERRAL CALLED TO [facility]. SPOKE WITH AYAN. PROVIDED WITH PT INSURANCE INFORMATION. Initialized on 08/13/16 14:50 - END OF NOTE 08/13/16 13:20 (created 08/13/16 14:33) Case Management Note by Silvia Sebastian DISCUSSION WITH AND PT RE NEEDS AT HOME. PT REPORTS THAT SHE IS REALLY WANTING TO GO TO REHAB FACILITY. REPORTS THAT AT THIS TIME SHE IS UNABLE TO CARE FOR OWN PERSONAL NEEDS. REPORTS THAT THE ONLY ONE THAT THEY HAVE TO STAY WITH HER IS HIS MOTHER, AND THAT SHE IS NOT PHYSICALLY ABLE TO LIFT ON PT. DISCUSSED HOSPICE SERVICES AND HIRED CAREGIVERS. REPORTS THAT FINANCIALLY THAT HE IS UNABLE TO AFFORD TO HIRE CAREGIVERS TO STAY WITH PT, AND THAT THIS WOULD BE A LAST RESORT. DISCUSSED MANAGED MEDICARE, AND THAT HER REHAB STAY WILL LIKELY HAVE TO BE PRECERTED. VERBALIZED UNDERSTANDING. PT REQUESTS REFERRAL TO [facility], FIRST CHOICE, BUT ALSO REPORTS THAT SHE IS WILLING TO GO TO WHATEVER FACILITY IS IN HER INSURANCE NETWORK. WILL MAKE REFERRAL TO [facility]. DECLINED ADDNL NEEDS AT PRESENT. WILL CONTINUE TO FOLLOW AND ASSESS FOR ALL DC NEEDS. Initialized on 08/13/16 14:33 - END OF NOTE Assessment/Plan (1) UTI (urinary tract infection) Current Visit: Yes Status: Acute Assessment & Plan: ceftriaxone Code(s): N39.0 - URINARY TRACT INFECTION, SITE NOT SPECIFIED (2) Dehydration Current Visit: Yes Status: Acute Code(s): E86.0 - DEHYDRATION (3) Weakness Current Visit: Yes Status: Acute Code(s): R53.1 - WEAKNESS (4) Severe protein-calorie malnutrition Current Visit: Yes Status: Acute Assessment & Plan: unable to tolerate ng feedings will start tpn continue to try po and use the reglan also Code(s): E43 - UNSPECIFIED SEVERE PROTEIN-CALORIE MALNUTRITION (5) Anemia Current Visit: Yes Status: Chronic Qualifiers: Anemia type: unspecified type Qualified Code(s): D64.9 - Anemia, unspecified Code(s): D64.9 - ANEMIA, UNSPECIFIED (6) Short gut syndrome Current Visit: Yes Status: Chronic Code(s): K91.2 - POSTSURGICAL MALABSORPTION, NOT ELSEWHERE CLASSIFIED (7) Seizure disorder Current Visit: Yes Status: Chronic Code(s): G40.909 - EPILEPSY, UNSP, NOT INTRACTABLE, WITHOUT STATUS EPILEPTICUS (8) Nutritional disorder Current Visit: Yes Status: Chronic Code(s): E63.9 - NUTRITIONAL DEFICIENCY, UNSPECIFIED (9) Depression Current Visit: Yes Status: Chronic Code(s): F32.9 - MAJOR DEPRESSIVE DISORDER, SINGLE EPISODE, UNSPECIFIED (10) S/P CABG (coronary artery bypass graft) Current Visit: Yes Status: Chronic Code(s): Z95.1 - PRESENCE OF AORTOCORONARY BYPASS GRAFT
[2016-08-14] MEDS: Magnesium 1 Gm / 100 Ml D5W*** 100 ML IV SCH ×2 (08:15→09:36)
[2016-08-14] MEDS ORDERED: PHARMACY DOSING REQUEST MC ONE (09:00)
[2016-08-14] MEDS: Reglan 10 MG/2 ML IV SCH ×3 (09:37→23:07)
[2016-08-14] MEDS: Protonix 40MG Tablet PO SCH (09:39)
[2016-08-14] MEDS: Klor Con 10 MEQ PO SCH ×2 (09:39→23:27)
[2016-08-14] MEDS: ELIQUIS PO SCH ×2 (09:39→23:26)
[2016-08-14] MEDS: VITA-BEE WITH C PO SCH (09:39)
[2016-08-14] MEDS: VITAMIN B-1 100 MG PO SCH (09:39)
[2016-08-14] MEDS: PATIENT OWN MEDICATION PO SCH ×2 (09:39→23:18)
[2016-08-14] MEDS: ROCEPHIN 1 Gm-D5w 50 ml Bag** 50 ML IV SCH (10:42)
[2016-08-14] MEDS: Phenergan 25 MG INJ IV PRN ×2 (11:51→23:02)
[2016-08-14] MEDS: Zofran 4 MG/2 ML VIAL IV PRN ×2 (13:24→19:53)
[2016-08-14] MEDS ORDERED: INTRALIPID 20% 250 ML 250 ML, TPN Electrolytes 40 ML, Multitrace-4 Conc Vial 1 ML*** 1 ... IV SCH ×8 (14:00)
[2016-08-14] MEDS: REMERON 30 MG PO SCH (23:27)
[2016-08-15] MEDS: Zofran 4 MG/2 ML VIAL IV PRN ×4 (03:19→20:36)
[2016-08-15] MEDS: PATIENT OWN MEDICATION SL SCH ×3 (06:04→18:53)
--- NOTE | 2016-08-15 08:55 | PCM.NOTE ---
Date and Time: 08/15/16 0851 Subjective Assessment: still nauseated has only tolerated small sips of water. pain in her extremities from the increased swelling. some abdominal pains now pain from the NG is resolved now with its removal Objective Exam General Appearance: cachetic Neurologic Exam: alert, oriented x 3 Skin Exam: warm, dry Eye Exam: pale conjunctivae Ears, Nose, Throat Exam: dry mucous membranes Neck Exam: normal inspection, non-tender, supple Respiratory Exam: normal breath sounds, lungs clear Cardiovascular Exam: regular rate/rhythm, No murmur Gastrointestinal/Abdomen Exam: soft, normal bowel sounds, No tenderness Extremity Exam: pedal edema, No tenderness OBJECTIVE DATA Vital Signs: Vital Signs - 24 hr Temp Pulse Resp BP Pulse Ox 08/15/16 07:24 97.5 F 97 H 18 108/63 94 L 08/15/16 04:00 98.5 F 82 16 156/71 93 L 08/14/16 23:52 98.4 F 89 15 111/80 94 L 08/14/16 20:00 98.2 F 88 16 124/85 95 08/14/16 16:00 97.9 F 89 18 119/77 96 08/14/16 12:45 98.7 F 85 17 117/58 90 L Pain Assessment - Last Documented Pain Scale Used 0-10 Pain Scale Intake and Output: Intake & Output 08/12/16 08/13/16 08/14/16 08/15/16 11:59 11:59 11:59 11:59 Intake Total 1130 2254 1999 Output Total 100 200 775 Balance 1030 2054 1224 Weight 37.92 kg 39.916 kg 40.37 kg Lab Results: Lab Results-Last 24 Hours 08/14/16 08/15/16 Range/Units 12:22 04:50 Potassium 3.6 (3.5-5.1) mEq/L Magnesium 1.5 L (1.8-2.4) mg/dL Multi-Disciplinary Progress Notes: Multi-Disciplinary Progress Notes 08/14/16 15:26 Case Management Note by Silvia Sebastian BALLISTIC TECHNICIAN AT [facility] NOTIFIED CASE MANAGEMENT THAT THEY WOULD NOT BE ABLE TO ACCEPT PT TO REHAB. DISCUSSED WITH PT AND [facility]. [facility] REQUESTS REFERRAL TO [facility] 2ND CHOICE. REPORTS THAT IF THEY ARE UNABLE TO ACCEPT THEN THEY WOULD START LOOKING AT FACILITIES IN [place]. REFERRAL CALLED TO [facility] [place]. DID DISCUSS AGAIN WITH PT AND , [facility], HOSPICE SERVICES. [facility] REPORTS THAT IF THEIR INSURANCE WILL NOT COVER REHAB STAY - OR IF THEY CAN NOT FIND A FACILITY CLOSE TO HOME TO ACCEPT PT , THEN THEY WILL LOOK AT HOSPICE VIABLE OPTION FOR DISCHARGE. WILL CONTINUE TO FOLLOW FOR ALL DC NEEDS. Initialized on 08/14/16 15:26 - END OF NOTE 08/14/16 13:49 Nutrition Note by Nadine Bobo F/u Note: Note TPN started today @ 25cc/hour to advance within 3 hours to 55cc/hour which will provide 1508 kcals and 58 gms protein. Will monitor pt's tolerance and f/ u prn. MS LouisRDCD Addendum entered by Nadine Bobo 08/14/16 14:02: Recommend not advancing to 55cc/hour for 48 hours d/t risk of refeeding syndrome. EVER Myers Initialized on 08/14/16 13:49 - END OF NOTE 08/14/16 12:35 Pharmacy Note by Franky Sarabia [facility] TPN to infuse at 55ml/hr for around 1500 calories per day. Will increase standard tpn lytes to 40ml, add 66mEq of K-Phos., 10 units of Insulin to prevent sugar spike. Adding Pepcid 40mg since not taking oral Protonix routinely. Initialized on 08/14/16 12:35 - END OF NOTE Assessment/Plan (1) UTI (urinary tract infection) Current Visit: Yes Status: Acute Code(s): N39.0 - URINARY TRACT INFECTION, SITE NOT SPECIFIED (2) Dehydration Current Visit: Yes Status: Acute Code(s): E86.0 - DEHYDRATION (3) Weakness Current Visit: Yes Status: Acute Code(s): R53.1 - WEAKNESS (4) Severe protein-calorie malnutrition Current Visit: Yes Status: Acute Assessment & Plan: on TPN now as did not tolerate NG feedings at all. she has the swelling that is stable to mildly worse continue to monitor electrolytles and phos monitoring for refeeding syndrome she has been evaluated in the past by [facility] as well as local surgeons for her gastroperesis and was not a candidate for any more surgeries or interventions. WE discussed this again today. SHe has had periods of recovery followed by relapse since the original problems and gastrectomy will continue the TPN to regain the nutrition and continue to encourage po if able to tolerate. If she is able to survive through the short term and we can get the severe malnutrition improved will try finding another opinion on options for improving her enteral nutrition options but as of now she has been told by tertiary centers she is not a candidate for further treatments. she did not tolerate erthythromycin in the past Code(s): E43 - UNSPECIFIED SEVERE PROTEIN-CALORIE MALNUTRITION (5) Anemia Current Visit: Yes Status: Chronic Qualifiers: Anemia type: unspecified type Qualified Code(s): D64.9 - Anemia, unspecified Code(s): D64.9 - ANEMIA, UNSPECIFIED (6) Short gut syndrome Current Visit: Yes Status: Chronic Code(s): K91.2 - POSTSURGICAL MALABSORPTION, NOT ELSEWHERE CLASSIFIED (7) Seizure disorder Current Visit: Yes Status: Chronic Code(s): G40.909 - EPILEPSY, UNSP, NOT INTRACTABLE, WITHOUT STATUS EPILEPTICUS (8) Nutritional disorder Current Visit: Yes Status: Chronic Code(s): E63.9 - NUTRITIONAL DEFICIENCY, UNSPECIFIED (9) Depression Current Visit: Yes Status: Chronic Code(s): F32.9 - MAJOR DEPRESSIVE DISORDER, SINGLE EPISODE, UNSPECIFIED (10) S/P CABG (coronary artery bypass graft) Current Visit: Yes Status: Chronic Code(s): Z95.1 - PRESENCE OF AORTOCORONARY BYPASS GRAFT
[2016-08-15] MEDS: ROCEPHIN 1 Gm-D5w 50 ml Bag** 50 ML IV SCH (10:03)
[2016-08-15] MEDS: Reglan 10 MG/2 ML IV SCH ×3 (10:03→21:14)
[2016-08-15] MEDS: PATIENT OWN MEDICATION PO SCH ×2 (10:09→18:53)
[2016-08-15] MEDS: ELIQUIS PO SCH ×2 (10:58→21:14)
[2016-08-15] MEDS: Protonix 40MG Tablet PO SCH (11:11)
[2016-08-15] MEDS: VITAMIN B-1 100 MG PO SCH (11:11)
[2016-08-15] MEDS: VITA-BEE WITH C PO SCH (11:11)
[2016-08-15] MEDS: Klor Con 10 MEQ PO SCH ×2 (11:11→21:22)
[2016-08-15] MEDS: INTRALIPID 20% 250 ML 250 ML, TPN Electrolytes 40 ML, Multitrace-4 Conc Vial 1 ML*** 1 ... IV SCH ×11 (14:20)
[2016-08-15] MEDS: REMERON 30 MG PO SCH (18:53)
[2016-08-15] MEDS: Phenergan 25 MG INJ IV PRN (23:14)
[2016-08-16] MEDS: TYLENOL 325 MG PO PRN (00:50)
[2016-08-16] MEDS: Zofran 4 MG/2 ML VIAL IV PRN ×2 (00:57→22:05)
[2016-08-16] MEDS: PATIENT OWN MEDICATION SL SCH ×3 (05:54→18:42)
[2016-08-16 06:41] LABS: Mean Corpuscular Hemoglobin 31.3 pg (26-32); Mean Platelet Volume 10.7 fl (6-9.5); Platelet Count 236 K/mm3 (150-450); Red Blood Count 2.33 M/mm3 (4.1-5.4); Red Cell Distribution Width 15.9 % (11.5-14.0); White Blood Count 5.7 K/mm3 (4.0-10.5)
[2016-08-16 08:10] LABS: ALBUMIN 0.8 g/dL (3.4-5.0); ALKALINE PHOSPHATASE 90 U/L (46-116); ANION GAP 8.4 MEQ/L (5-15); BLOOD UREA NITROGEN 7 mg/dL (9-20); CHLORIDE 108 mEq/L (98-107); Carbon Dioxide 27.7 mEq/L (21-32); Glucose 83 MG/DL (70-110); MAGNESIUM 1.7 mg/dL (1.8-2.4); PHOSPHOROUS 3.1 mg/dL (2.6-4.7); Potassium 4.1 mEq/L (3.5-5.1); SGOT/AST 15 U/L (15-37); SGPT/ALT 13 U/L (12-78); SODIUM 140 mEq/L (136-145); Total Protein 3.7 gm/dL (6.4-8.2)
[2016-08-16 08:14] LABS: BILIRUBIN,TOTAL < 0.1 mg/dL (0.2-1.0)
[2016-08-16] MEDS: ELIQUIS PO SCH ×2 (10:20→21:59)
[2016-08-16] MEDS: ROCEPHIN 1 Gm-D5w 50 ml Bag** 50 ML IV SCH (10:21)
[2016-08-16] MEDS: Reglan 10 MG/2 ML IV SCH ×3 (10:21→21:59)
[2016-08-16] MEDS: Protonix 40MG Tablet PO SCH (10:23)
[2016-08-16] MEDS: PATIENT OWN MEDICATION PO SCH ×2 (10:23→21:59)
[2016-08-16] MEDS: Klor Con 10 MEQ PO SCH ×3 (10:23→22:06)
[2016-08-16] MEDS: VITA-BEE WITH C PO SCH (10:24)
[2016-08-16] MEDS: VITAMIN B-1 100 MG PO SCH (10:24)
[2016-08-16] MEDS: INTRALIPID 20% 250 ML 250 ML, TPN Electrolytes 40 ML, Multitrace-4 Conc Vial 1 ML*** 1 ... IV SCH ×11 (14:48)
--- NOTE | 2016-08-16 17:24 | PCM.NOTE ---
Date and Time: 08/16/161718 Subjective Assessment: she has had some mild increased swelling she did not vomit yesterday and took a very small amount of po. Her pain is controlled right now with the tylenol and suboxone. she is too weak to move out of the bed. Objective Exam General Appearance: cachetic Neurologic Exam: oriented x 3, cooperative Skin Exam: warm, dry Eye Exam: No scleral icterus, No pale conjunctivae Ears, Nose, Throat Exam: moist mucous membranes Neck Exam: non-tender, supple Respiratory Exam: normal breath sounds, lungs clear Cardiovascular Exam: regular rate/rhythm, normal heart sounds, edema (pitting at the elbows and feet bilateral) Extremity Exam: pedal edema, No fer's sign OBJECTIVE DATA Vital Signs: Vital Signs - 24 hr Temp Pulse Resp BP Pulse Ox 08/16/16 16:18 98.1 F 96 H 18 104/61 92 L 08/16/16 12:43 97.6 F 68 18 97 08/16/16 07:35 92 L 08/16/16 07:28 97.8 F 87 18 118/62 93 L 08/16/16 04:00 98.3 F 67 16 116/59 94 L 08/16/16 00:00 98.2 F 69 18 119/65 92 L 08/15/16 20:30 69 18 93 L 08/15/16 20:00 98.5 F 88 17 96/58 92 L Oxygen-Last 24 hours O2 Percentage 2 Liters = 28% Pain Assessment - Last Documented Pain Intensity 0 Pain Scale Used 0-10 Pain Scale Intake and Output: Intake & Output 08/14/16 08/15/16 08/16/16 08/17/16 11:59 11:59 11:59 11:59 Intake Total 2253 1998 1429 60 Output Total 200 775 600 300 Balance 9446 1224 829 -240 Weight 39.916 kg 40.37 kg 40.098 kg 37.92 kg Lab Results: Lab Results-Last 24 Hours 08/16/16 08/16/16 Range/Units 04:50 04:50 WBC 5.7 (4.0-10.5) K/mm3 RBC 2.33 L (4.1-5.4) M/mm3 Hgb 7.3 L (12.0-16.0) gm/dl Hct 22.6 L (35-47) % MCV 97.0 (78-100) fl MCH 31.3 (26-32) pg MCHC 32.3 (32-36) g/dl RDW 15.9 H (11.5-14.0) % Plt Count 236 (150-450) K/mm3 MPV 10.7 H (6-9.5) fl Sodium 140 (136-145) mEq/L Potassium 4.1 (3.5-5.1) mEq/L Chloride 108 H (98-107) mEq/L Carbon Dioxide 27.7 (21-32) mEq/L Anion Gap 8.4 (5-15) MEQ/L BUN 7 L (9-20) mg/dL Creatinine 0.31 L (0.55-1.30) mg/dl Estimated GFR > 60 ML/MIN Glucose 83 (70-110) MG/DL Calcium 7.0 L (8.5-10.1) mg/dL Phosphorus 3.1 (2.6-4.7) mg/dL Magnesium 1.7 L (1.8-2.4) mg/dL Total Bilirubin < 0.1 L (0.2-1.0) mg/dL AST 15 (15-37) U/L ALT 13 (12-78) U/L Alkaline Phosphatase 90 (46-116) U/L Serum Total Protein 3.7 L (6.4-8.2) gm/dL Albumin 0.8 L (3.4-5.0) g/dL Multi-Disciplinary Progress Notes: Multi-Disciplinary Progress Notes 08/16/16 10:20 Nutrition Note by Nadine Bobo F/u Note: Pt con't with TPN @ 55cc/hour. Regular dietcon't - pt refuses meals. Labs = BUN 7, Cr 0.31, Ca 7.0, Mg 1.7, alb 0.8, hgb 7.3, hct 22.6, +fluid balance of 829 mls which has decreased. Weight 88.2# - adm. weight 83.4# - Pt with approx. 5# weight gain in 4 days. May need to reduce feeding volume to 30cc/ hour until patient tolerates fluid load. Will con't to monitor and f/u prn. TEVER Waite Initialized on 08/16/16 10:20 - END OF NOTE 08/16/16 08:45 (created 08/16/16 09:46) Case Management Note by Silvia Sebastian PT/ CONTINUE TO PLAN FOR STAY AT [facility] PENDING INSURANCE APPROVAL. AWAIT NOTIFICATION FROM [facility]. WILL CONTINUE TO FOLLOW AND ASSESS FOR ALL DC NEEDS. Initialized on 08/16/16 09:46 - END OF NOTE Assessment/Plan (1) UTI (urinary tract infection) Current Visit: Yes Status: Acute Code(s): N39.0 - URINARY TRACT INFECTION, SITE NOT SPECIFIED (2) Dehydration Current Visit: Yes Status: Acute Code(s): E86.0 - DEHYDRATION (3) Weakness Current Visit: Yes Status: Acute Code(s): R53.1 - WEAKNESS (4) Severe protein-calorie malnutrition Current Visit: Yes Status: Acute Assessment & Plan: continue with the TPN continue the reglan and try to encourage enteral intake again per all previous reports [facility], [facility], and our local surgeons did not think she was candidate for feeding tube. poor overall prognosis currently working on placement options as she is unable to care for herself at home and does not have resources in place to help with this. her anemia is worse today but relatively asymptomatic at this time she had recent DVT upper extremity cut the eliquis back to 2.5 mg po bid no evidence of bleeding currently. suspect drop more dilutional Code(s): E43 - UNSPECIFIED SEVERE PROTEIN-CALORIE MALNUTRITION (5) Anemia Current Visit: Yes Status: Chronic Qualifiers: Anemia type: unspecified type Qualified Code(s): D64.9 - Anemia, unspecified Code(s): D64.9 - ANEMIA, UNSPECIFIED (6) Short gut syndrome Current Visit: Yes Status: Chronic Code(s): K91.2 - POSTSURGICAL MALABSORPTION, NOT ELSEWHERE CLASSIFIED (7) Seizure disorder Current Visit: Yes Status: Chronic Code(s): G40.909 - EPILEPSY, UNSP, NOT INTRACTABLE, WITHOUT STATUS EPILEPTICUS (8) Nutritional disorder Current Visit: Yes Status: Chronic Code(s): E63.9 - NUTRITIONAL DEFICIENCY, UNSPECIFIED (9) Depression Current Visit: Yes Status: Chronic Code(s): F32.9 - MAJOR DEPRESSIVE DISORDER, SINGLE EPISODE, UNSPECIFIED (10) S/P CABG (coronary artery bypass graft) Current Visit: Yes Status: Chronic Code(s): Z95.1 - PRESENCE OF AORTOCORONARY BYPASS GRAFT
[2016-08-16] MEDS: Phenergan 25 MG INJ IV PRN (18:49)
[2016-08-16] MEDS: REMERON 30 MG PO SCH (21:58)
[2016-08-17] MEDS: Phenergan 25 MG INJ IV PRN (01:03)
[2016-08-17] MEDS: Zofran 4 MG/2 ML VIAL IV PRN ×4 (04:58→22:17)
[2016-08-17] MEDS: PATIENT OWN MEDICATION SL SCH ×3 (05:15→19:30)
[2016-08-17 05:54] LABS: Mean Cell Volume 98.2 fl (78-100); Mean Platelet Volume 10.8 fl (6-9.5); Platelet Count 226 K/mm3 (150-450); Red Blood Count 2.18 M/mm3 (4.1-5.4); Red Cell Distribution Width 15.9 % (11.5-14.0); White Blood Count 6.4 K/mm3 (4.0-10.5)
[2016-08-17 06:14] LABS: Mean Corpuscular Hemoglobin 31.6 pg (26-32)
[2016-08-17 06:21] LABS: ALBUMIN 0.8 g/dL (3.4-5.0); ANION GAP 4.5 MEQ/L (5-15); BLOOD UREA NITROGEN 8 mg/dL (9-20); CHLORIDE 106 mEq/L (98-107); Carbon Dioxide 32.2 mEq/L (21-32); Glucose 131 MG/DL (70-110); MAGNESIUM 1.7 mg/dL (1.8-2.4); Potassium 4.1 mEq/L (3.5-5.1); SODIUM 139 mEq/L (136-145); Total Protein 3.9 gm/dL (6.4-8.2)
[2016-08-17 07:56] LABS: ANISOCYTOSIS 1+; Hypochromia 1+; Platelet Estimate NORMAL (NORMAL); Total Cells Counted 100
[2016-08-17] MEDS ORDERED: Lasix 20 MG/2 ML IV PRN (08:30)
--- NOTE | 2016-08-17 08:32 | PCM.NOTE ---
Date and Time: 08/17/16826 Subjective Assessment: She reports that she has a little more energy receiving the TPN. Her elbows are swollen and she reports they are very painful. She denies any appetite at all and states she does not feel like she can eat. She is agreeable to a blood transfusion today for her critical Hgb of 6.9. - Review of Systems Constitutional: Fatigue, Weakness, Weight Loss Eyes: No Symptoms Ears, Nose, & Throat: No Symptoms Respiratory: No Symptoms Cardiac: No Symptoms Abdominal/Gastrointestinal: Nausea, Appetite Changes Genitourinary Symptoms: No Symptoms Musculoskeletal: Joint Swelling Skin: Other (sensitive to touch) Objective Exam General Appearance: no apparent distress, thin Neurologic Exam: alert, cooperative, depressed mood/affect Skin Exam: normal color, warm, dry, No rash Respiratory Exam: normal breath sounds, lungs clear, No crackles/rales, No rhonchi, No wheezing Cardiovascular Exam: regular rate/rhythm, normal heart sounds, No murmur, No friction rub, No gallop Gastrointestinal/Abdomen Exam: soft, other (hypoactive bowel sounds, well healed midline scar), No tenderness, No distention Extremity Exam: swelling, other (marked swelling of her elbows bilat, thin, bony limbs.) OBJECTIVE DATA Vital Signs: Vital Signs - 24 hr Temp Pulse Resp BP Pulse Ox 08/17/16 07:25 97.8 F 83 18 99/57 83 L 08/17/16 04:00 98.4 F 93 H 15 94/53 93 L 08/17/16 00:00 98.9 F 92 H 15 88/59 95 08/16/16 20:00 98.2 F 96 H 14 100/61 92 L 08/16/16 16:18 98.1 F 96 H 18 104/61 92 L 08/16/16 12:43 97.6 F 68 18 97 Oxygen-Last 24 hours O2 Percentage 2 Liters = 28% O2 Percentage 2 Liters = 28% O2 Percentage 2 Liters = 28% Pain Assessment - Last Documented Pain Intensity 0 Pain Scale Used 0-10 Pain Scale Intake and Output: Intake & Output 08/15/16 08/16/16 08/17/16 08/18/16 06:59 06:59 06:59 07:59 Intake Total 2119 1429 1653 Output Total 964 818 3560 Balance 1144 829 -547 Weight 40.37 kg 37.92 kg 37.83 kg Lab Results: Lab Results-Last 24 Hours 08/17/16 08/17/16 Range/Units 05:45 05:45 WBC 6.4 (4.0-10.5) K/mm3 RBC 2.18 L (4.1-5.4) M/mm3 Hgb 6.9 L* (12.0-16.0) gm/dl Hct 21.4 L (35-47) % MCV 98.2 (78-100) fl MCH 31.6 (26-32) pg MCHC 32.2 (32-36) g/dl RDW 15.9 H (11.5-14.0) % Plt Count 226 (150-450) K/mm3 MPV 10.8 H (6-9.5) fl Segmented Neutrophils 75 H (36.0-66.0) % Lymphocytes (Manual) 16 L (24-44) % Monocytes (Manual) 9 (0.0-12.0) % Differential Comment ABNORMAL Platelet Estimate NORMAL (NORMAL) Hypochromasia 1+ Anisocytosis 1+ Sodium 139 (136-145) mEq/L Potassium 4.1 (3.5-5.1) mEq/L Chloride 106 (98-107) mEq/L Carbon Dioxide 32.2 H (21-32) mEq/L Anion Gap 4.5 L (5-15) MEQ/L BUN 8 L (9-20) mg/dL Creatinine 0.33 L (0.55-1.30) mg/dl Estimated GFR > 60 ML/MIN Glucose 131 H (70-110) MG/DL Calcium 7.2 L (8.5-10.1) mg/dL Magnesium 1.7 L (1.8-2.4) mg/dL Serum Total Protein 3.9 L (6.4-8.2) gm/dL Albumin 0.8 L (3.4-5.0) g/dL Multi-Disciplinary Progress Notes: Multi-Disciplinary Progress Notes 08/16/16 10:20 Nutrition Note by Nadine Bobo F/u Note: Pt con't with TPN @ 55cc/hour. Regular dietcon't - pt refuses meals. Labs = BUN 7, Cr 0.31, Ca 7.0, Mg 1.7, alb 0.8, hgb 7.3, hct 22.6, +fluid balance of 829 mls which has decreased. Weight 88.2# - adm. weight 83.4# - Pt with approx. 5# weight gain in 4 days. May need to reduce feeding volume to 30cc/ hour until patient tolerates fluid load. Will con't to monitor and f/u prn. EVER Myers Initialized on 08/16/16 10:20 - END OF NOTE 08/16/16 08:45 (created 08/16/16 09:46) Case Management Note by Silvia Sebastian PT/ CONTINUE TO PLAN FOR STAY AT [facility] PENDING INSURANCE APPROVAL. AWAIT NOTIFICATION FROM [facility]. WILL CONTINUE TO FOLLOW AND ASSESS FOR ALL DC NEEDS. Initialized on 08/16/16 09:46 - END OF NOTE Assessment/Plan (1) Anemia of chronic disease Current Visit: Yes Status: Acute Assessment & Plan: Transfuse 2 units of PRBC's today for critical Hgb of 6.9. Will give lasix 20 mg IV between units of lasix. Code(s): D63.8 - ANEMIA IN OTHER CHRONIC DISEASES CLASSIFIED ELSEWHERE (2) Short gut syndrome Current Visit: Yes Status: Chronic Assessment & Plan: Continue TPN. She also has a diet ordered and states she does better if she can order what she wants. Code(s): K91.2 - POSTSURGICAL MALABSORPTION, NOT ELSEWHERE CLASSIFIED (3) Severe protein-calorie malnutrition Current Visit: Yes Status: Acute Code(s): E43 - UNSPECIFIED SEVERE PROTEIN- CALORIE MALNUTRITION (4) Depression Current Visit: Yes Status: Chronic Qualifiers: Depression Type: major depressive disorder Code(s): F32.9 - MAJOR DEPRESSIVE DISORDER, SINGLE EPISODE, UNSPECIFIED (5) S/P CABG (coronary artery bypass graft) Current Visit: Yes Status: Chronic Code(s): Z95.1 - PRESENCE OF AORTOCORONARY BYPASS GRAFT (6) Chronic pain syndrome Current Visit: No Status: Chronic
[2016-08-17] MEDS: ELIQUIS PO SCH ×2 (09:39→22:07)
[2016-08-17] MEDS: Protonix 40MG Tablet PO SCH (09:39)
[2016-08-17] MEDS: Klor Con 10 MEQ PO SCH ×2 (09:40→22:07)
[2016-08-17] MEDS: PATIENT OWN MEDICATION PO SCH ×2 (09:41→22:07)
[2016-08-17] MEDS: Reglan 10 MG/2 ML IV SCH ×3 (09:41→22:07)
[2016-08-17] MEDS: ROCEPHIN 1 Gm-D5w 50 ml Bag** 50 ML IV SCH (09:41)
[2016-08-17] MEDS: VITAMIN B-1 100 MG PO SCH (09:42)
[2016-08-17] MEDS: VITA-BEE WITH C PO SCH (09:42)
[2016-08-17] MEDS: INTRALIPID 20% 250 ML 250 ML, TPN Electrolytes 40 ML, Multitrace-4 Conc Vial 1 ML*** 1 ... IV SCH ×11 (14:35)
[2016-08-17] MEDS: REMERON 30 MG PO SCH (22:07)
[2016-08-18 00:29] LABS: AB ID Interp See Result Note:
[2016-08-18] MEDS: Phenergan 25 MG INJ IV PRN ×3 (00:40→17:51)
[2016-08-18] MEDS ORDERED: Sodium Chloride 0.9% 500 ML 500 ML IV ONE (01:17)
[2016-08-18] MEDS: PATIENT OWN MEDICATION SL SCH ×3 (05:44→18:48)
[2016-08-18] MEDS: ROCEPHIN 1 Gm-D5w 50 ml Bag** 50 ML IV SCH (10:00)
[2016-08-18] MEDS: Reglan 10 MG/2 ML IV SCH ×3 (10:00→21:28)
[2016-08-18] MEDS: ELIQUIS PO SCH ×2 (10:02→21:27)
[2016-08-18] MEDS: Klor Con 10 MEQ PO SCH ×2 (10:03→21:38)
[2016-08-18] MEDS: Protonix 40MG Tablet PO SCH (10:03)
[2016-08-18] MEDS: VITAMIN B-1 100 MG PO SCH (10:04)
[2016-08-18] MEDS: VITA-BEE WITH C PO SCH (10:04)
[2016-08-18] MEDS: PATIENT OWN MEDICATION PO SCH ×2 (10:05→21:27)
[2016-08-18] MEDS: Zofran 4 MG/2 ML VIAL IV PRN ×2 (10:25→21:28)
[2016-08-18] MEDS: TYLENOL 325 MG PO PRN (10:26)
[2016-08-18] MEDS ORDERED: Venofer 100 MG/5 ML IV SCH (12:00)
--- NOTE | 2016-08-18 12:40 | PCM.NOTE ---
Date and Time: 08/18/16 1236 Subjective Assessment: She reports she was able to eat a little, but she will throw it back up. She states she feels about the same after the blood transfusion. She denies any new problems. - Review of Systems Constitutional: Weight Loss Eyes: No Symptoms Ears, Nose, & Throat: No Symptoms Respiratory: No Symptoms Cardiac: No Symptoms Abdominal/Gastrointestinal: Abdominal Pain Genitourinary Symptoms: No Symptoms Musculoskeletal: No Symptoms Skin: No Symptoms Objective Exam General Appearance: no apparent distress, cachetic, thin Neurologic Exam: alert, cooperative, depressed mood/affect Skin Exam: normal color, warm, dry, No rash Respiratory Exam: normal breath sounds, lungs clear, No accessory muscle use, No crackles/rales, No rhonchi Cardiovascular Exam: regular rate/rhythm, normal heart sounds, No murmur, No friction rub, No gallop Gastrointestinal/Abdomen Exam: soft, normal bowel sounds, tenderness, No distention, No mass, No guarding Extremity Exam: normal inspection, other (no c/c/e, thin) OBJECTIVE DATA Vital Signs: Vital Signs - 24 hr Temp Pulse Resp BP Pulse Ox 08/18/16 09:22 96 08/18/16 07:34 98.6 F 87 18 119/77 96 08/18/16 04:38 98.6 F 84 16 88/59 97 08/18/16 00:38 98.2 F 79 16 138/61 97 08/17/16 20:36 98 08/17/16 19:59 98.1 F 79 15 90/52 98 08/17/16 16:16 97.6 F 85 18 156/67 96 08/17/16 14:26 96 08/17/16 11:39 97.7 F Oxygen-Last 24 hours O2 Percentage 2 Liters = 28% O2 Percentage 2 Liters = 28% O2 Percentage 2 Liters = 28% Pain Assessment - Last Documented Pain Intensity 10 Pain Scale Used 0-10 Pain Scale Intake and Output: Intake & Output 08/16/16 08/17/16 08/18/16 08/19/16 05:59 05:59 06:59 06:59 Intake Total Output Total 400 Balance -400 Weight Lab Results: Lab Results-Last 24 Hours 08/17/16 08/17/16 08/18/16 Range/Units 09:00 09:00 10:13 Hgb 10.6 L (12.0-16.0) gm/dl Hct 32.8 L (35-47) % ABO Group O Rh Factor POSITIVE Antibody Screen POSITIVE (NEGATIVE) Crossmatch COMPATIBLE COMPATIBLE (COMPATIBLE) Assessment/Plan (1) Anemia of chronic disease Current Visit: Yes Status: Acute Assessment & Plan: Her hemoglobin is better after transfusion of 2 units PRBC's yesterday. Code(s): D63.8 - ANEMIA IN OTHER CHRONIC DISEASES CLASSIFIED ELSEWHERE (2) Short gut syndrome Current Visit: Yes Status: Chronic Assessment & Plan: Continue TPN. The pharmacist reports she is only getting 1/2 the bag daily as she can't tolerate the fluids. Code(s): K91.2 - POSTSURGICAL MALABSORPTION, NOT ELSEWHERE CLASSIFIED (3) Severe protein-calorie malnutrition Current Visit: Yes Status: Acute Assessment & Plan: Add folate to her TPN. Discussed with pharmacist. Code(s): E43 - UNSPECIFIED SEVERE PROTEIN-CALORIE MALNUTRITION (4) Depression Current Visit: Yes Status: Chronic Qualifiers: Depression Type: major depressive disorder Assessment & Plan: Her mood seems better today. She has some [place] at her bedside that one of her nurses brought her. Code(s): F32.9 - MAJOR DEPRESSIVE DISORDER, SINGLE EPISODE, UNSPECIFIED (5) S/P CABG (coronary artery bypass graft) Current Visit: Yes Status: Chronic Code(s): Z95.1 - PRESENCE OF AORTOCORONARY BYPASS GRAFT (6) Chronic pain syndrome Current Visit: No Status: Chronic Assessment & Plan: Her pain is currently well controlled. (7) Iron deficiency anemia Current Visit: Yes Status: Acute Assessment & Plan: Iron levels were checked and were low. Will start venofer 200 mg IV every other day x 5 doses total. Code(s): D50.9 - IRON DEFICIENCY ANEMIA, UNSPECIFIED
[2016-08-18] MEDS ORDERED: Venofer 100 MG/5 ML*** 200 MG in Sodium Chloride 0.9% 100 ML IVPB 100 ML IV SCH (13:00)
[2016-08-18] MEDS: INTRALIPID 20% 250 ML 250 ML, TPN Electrolytes 40 ML, Multitrace-4 Conc Vial 1 ML*** 1 ... IV SCH ×12 (13:55)
[2016-08-18] MEDS: REMERON 30 MG PO SCH (21:28)
[2016-08-19] MEDS: Phenergan 25 MG INJ IV PRN ×4 (00:47→18:46)
[2016-08-19] MEDS: TYLENOL 325 MG PO PRN (04:10)
[2016-08-19 05:57] LABS: BASOPHIL % 0.5 % (0.0-0.4); Granulocytes % 63.1 % (36.0-66.0); Lymphocytes % 17.6 % (24.0-44.0); Mean Cell Volume 94.6 fl (78-100); Mean Platelet Volume 10.8 fl (6-9.5); Monocytes % 17.8 % (0.0-12.0); Platelet Count 220 K/mm3 (150-450); Red Blood Count 3.73 M/mm3 (4.1-5.4); Red Cell Distribution Width 16.5 % (11.5-14.0); White Blood Count 5.8 K/mm3 (4.0-10.5)
[2016-08-19 06:02] LABS: Mean Corpuscular Hemoglobin 31.3 pg (26-32)
[2016-08-19 06:13] LABS: ALBUMIN 0.9 g/dL (3.4-5.0); ANION GAP 8.1 MEQ/L (5-15); BLOOD UREA NITROGEN 8 mg/dL (9-20); CHLORIDE 104 mEq/L (98-107); Carbon Dioxide 33.7 mEq/L (21-32); Glucose 137 MG/DL (70-110); MAGNESIUM 1.7 mg/dL (1.8-2.4); Potassium 4.3 mEq/L (3.5-5.1); SODIUM 142 mEq/L (136-145); Total Protein 4.9 gm/dL (6.4-8.2)
[2016-08-19] MEDS: PATIENT OWN MEDICATION SL SCH ×3 (06:25→19:47)
[2016-08-19] MEDS: PATIENT OWN MEDICATION PO SCH ×2 (10:13→22:08)
[2016-08-19] MEDS: Klor Con 10 MEQ PO SCH ×2 (10:13→22:08)
[2016-08-19] MEDS: ELIQUIS PO SCH ×2 (10:13→22:07)
[2016-08-19] MEDS: VITA-BEE WITH C PO SCH (10:14)
[2016-08-19] MEDS: Reglan 10 MG/2 ML IV SCH ×3 (10:14→22:08)
[2016-08-19] MEDS: Protonix 40MG Tablet PO SCH (10:14)
[2016-08-19] MEDS: VITAMIN B-1 100 MG PO SCH (10:15)
[2016-08-19] MEDS: ROCEPHIN 1 Gm-D5w 50 ml Bag** 50 ML IV SCH (10:15)
[2016-08-19] MEDS: Zofran 4 MG/2 ML VIAL IV PRN ×2 (16:06→22:08)
[2016-08-19] MEDS: VITAMIN D PO SCH (16:13)
[2016-08-19] MEDS: INTRALIPID 20% 250 ML 250 ML, TPN Electrolytes 40 ML, Multitrace-4 Conc Vial 1 ML*** 1 ... IV SCH ×12 (16:25)
--- NOTE | 2016-08-19 18:22 | PCM.NOTE ---
Date and Time: 08/19/161817 Subjective Assessment: unable to find nursing facility [facility] will take her while on the tpn. she is still vomiting unablel to take more then a few bites she did get PRBC over weekend for anemia and remains weak nauseated Objective Exam General Appearance: cachetic Neurologic Exam: alert, oriented x 3, cooperative, depressed mood/affect Skin Exam: warm, dry, pale Eye Exam: No scleral icterus Ears, Nose, Throat Exam: dry mucous membranes Neck Exam: non-tender, supple Respiratory Exam: normal breath sounds, lungs clear Cardiovascular Exam: regular rate/rhythm, normal heart sounds Gastrointestinal/Abdomen Exam: soft, normal bowel sounds, No tenderness Extremity Exam: normal inspection, other (edema pedel and at elbows remains unchanged) OBJECTIVE DATA Vital Signs: Vital Signs - 24 hr Temp Pulse Resp BP Pulse Ox 08/19/16 16:00 98.0 F 92 H 18 159/90 95 08/19/16 11:22 98.0 F 83 18 122/86 96 08/19/16 08:22 76 18 92 L 08/19/16 07:19 98.0 F 81 18 121/62 94 L 08/19/16 04:36 97.9 F 70 16 126/76 93 L 08/19/16 00:48 98.0 F 83 14 122/61 91 L 08/18/16 20:32 99 08/18/16 19:53 97.9 F 78 15 123/64 91 L Pain Assessment - Last Documented Pain Intensity 0 Pain Scale Used 0-10 Pain Scale Intake and Output: Intake & Output 08/17/16 08/18/16 08/19/16 08/20/16 10:59 11:59 11:59 11:59 Intake Total 817 Output Total 1300 400 Balance -483 -400 Weight 35.743 kg Lab Results: Lab Results-Last 24 Hours 08/19/16 08/19/16 08/19/16 Range/Units 04:00 05:32 05:32 WBC 5.8 (4.0-10.5) K/mm3 RBC 3.73 L (4.1-5.4) M/mm3 Hgb 11.7 L (12.0-16.0) gm/dl Hct 35.3 (35-47) % MCV 94.6 (78-100) fl MCH 31.3 (26-32) pg MCHC 33.1 (32-36) g/dl RDW 16.5 H (11.5-14.0) % Plt Count 220 (150-450) K/mm3 MPV 10.8 H (6-9.5) fl Gran % 63.1 (36.0-66.0) % Lymphocytes % 17.6 L (24.0-44.0) % Monocytes % 17.8 H (0.0-12.0) % Eosinophils % 1.0 (0.00-5.0) % Basophils % 0.5 (0.0-0.4) % Basophils # 0.03 (0-0.4) Sodium 142 (136-145) mEq/L Potassium 4.3 (3.5-5.1) mEq/L Chloride 104 (98-107) mEq/L Carbon Dioxide 33.7 H (21-32) mEq/L Anion Gap 8.1 (5-15) MEQ/L BUN 8 L (9-20) mg/dL Creatinine 0.30 L (0.55-1.30) mg/dl Estimated GFR > 60 ML/MIN Glucose 137 H (70-110) MG/DL Calcium 7.7 L (8.5-10.1) mg/dL Phosphorus 4.1 (2.6-4.7) mg/dL Magnesium 1.7 L (1.8-2.4) mg/dL Serum Total Protein 4.9 L (6.4-8.2) gm/dL Albumin 0.9 L (3.4-5.0) g/dL Multi-Disciplinary Progress Notes: Multi-Disciplinary Progress Notes 08/19/16 15:23 Case Management Note by Silvia Sebastian REFERRAL FAXED TO [facility]. [phone] Initialized on 08/19/16 15:23 - END OF NOTE 08/19/16 14:50 (created 08/19/16 15:10) Case Management Note by Silvia Sebastian N/O RECEIVED FOR HOSPICE REFERRAL. PT REQUESTS REFERRAL WITH [facility]. Initialized on 08/19/16 15:10 - END OF NOTE 08/19/16 14:20 (created 08/19/16 14:46) Case Management Note by Silvia Sebastian SPOKE WITH KIMBERLY, REPORTS THAT IF GAVIN WANTS TO COME HOME WITH HOSPICE, THEN THAT IS WHAT HE WANTED TO DO. REPORTS THAT HE WILL NOT CHANGE HER MIND. Initialized on 08/19/16 14:46 - END OF NOTE 08/19/16 14:00 (created 08/19/16 14:41) Case Management Note by Silvia Sebastian AGAIN, DISCUSSION REGARDING REHAB STAY WITH PT. PT REPORTS THAT SHE DOES NOT WANT TO GO TO REHAB. REPORTS THAT SHE JUST WANTS TO GO HOME. TEARFUL. STATES , "PLEASE CALL HOSPICE AND LET ME GO HOME." ENCOURAGED PT TO CALL HER AND HAVE DISCUSSION ABOUT WHAT SHE IS WANTING. EMOTIONAL SUPPORT PROVIDED. PT STATES, "THIS IS MY DECISION." Initialized on 08/19/16 14:41 - END OF NOTE 08/19/16 13:52 Nutrition Note by Nadine Bobo F/u Note: Note TPN con't @ 55cc/hour. Labs 08/19= BUN 8, Cr 0.30, glu 137, Mg 1.7, Ca 7.7, alb 0.9, hgb 11.7, hct 35.3 - pt s/p blood transfusion. neg fluid balance 883 mls. Regular diet con't as well with 50% po intake on Friday for Lunch and Dinner. Weight 08/18= 35.743 kg - pt with weight fluctuation possibly some d/t fluid balance. Pt appears to be tolerating feeding well. Recommend to con't with current orders. Goals: #1) weight gain 1-2#/week appropriate. #2) glu wnl Will monitor and f/u prn. T.EVER Bobo Initialized on 08/19/16 13:52 - END OF NOTE 08/19/16 11:35 (created 08/19/16 14:37) Case Management Note by Silvia Sebastian REPORTED ABOVE TO DR. SHAH. Initialized on 08/19/16 14:37 - END OF NOTE 08/19/16 11:00 (created 08/19/16 14:23) Case Management Note by Silvia Sebastian LONG DISCUSSION WITH PT AND DC PLANNING AND NEEDS. PT REPORTS THAT SHE WANTS TO GO HOME WITH HOSPICE SERVICES. STATES, "I AM DONE." STATES, "THIS IS NO WAY TO LIVE." STATES, "NOBODY KNOWS HOW I FEEL EVERYDAY." EMOTIONAL SUPPORT PROVIDED. PT REPORTS THAT SHE HAS NO INTENTION OF EATING. REPORTS THAT SHE HAS BEEN TELLING HER OVER THE LAST MONTH THAT SHE WANTS TO . PT REQUESTS THAT CASE MANAGEMENT DISCUSS WITH HER , KIMBERLY. REPORTS IT IS HER DECISION TO MAKE AND THAT SHE WANTS TO GO HOME WITH HOSPICE SERVICES. WILL REPORT TO DR. SHAH. WILL SPEAK WITH , KIMBERLY PER PT REQUEST. Initialized on 08/19/16 14:23 - END OF NOTE 08/19/16 09:50 (created 08/19/16 14:38) Case Management Note by Silvia Sebastian PHONE CALL TO [facility]. FOLLOWUP ON PRECERT WITH INSURANCE. REPORTS NOTHING BACK. DISCUSSED POSSIBLE NEED FOR TPN WELL, CRISTIAN REPORTS THAT THEY WILL HAVE TO RERUN COST ANALYSIS FOR PT. REPORTS THAT THEY WILL DISCUSS. Initialized on 08/19/16 14:38 - END OF NOTE Assessment/Plan (1) Severe protein-calorie malnutrition Current Visit: Yes Status: Acute Assessment & Plan: very severe continues on the tpn reglan has not been helpful in increasing po intake she has been ruled out for multiple facilities as they say they cannot place feeding tube with her lack of gut motility and s/p her gastrectomy. She is very malnurished overall prognosis is very poor she has tolerated the tpn will continue for now continue to look for placement options to increase work on appetite vs d/c tpn and work on palliative measures. Code(s): E43 - UNSPECIFIED SEVERE PROTEIN-CALORIE MALNUTRITION (2) Anemia Current Visit: Yes Status: Chronic Qualifiers: Anemia type: unspecified type Qualified Code(s): D64.9 - Anemia, unspecified Code(s): D64.9 - ANEMIA, UNSPECIFIED (3) UTI (urinary tract infection) Current Visit: Yes Status: Resolved Assessment & Plan: treated with 7 days iv rocephin Code(s): N39.0 - URINARY TRACT INFECTION, SITE NOT SPECIFIED (4) Dehydration Current Visit: Yes Status: Acute Code(s): E86.0 - DEHYDRATION (5) Weakness Current Visit: Yes Status: Acute Code(s): R53.1 - WEAKNESS (6) Short gut syndrome Current Visit: Yes Status: Chronic Code(s): K91.2 - POSTSURGICAL MALABSORPTION, NOT ELSEWHERE CLASSIFIED (7) Seizure disorder Current Visit: Yes Status: Chronic Code(s): G40.909 - EPILEPSY, UNSP, NOT INTRACTABLE, WITHOUT STATUS EPILEPTICUS (8) Nutritional disorder Current Visit: Yes Status: Chronic Code(s): E63.9 - NUTRITIONAL DEFICIENCY, UNSPECIFIED (9) Depression Current Visit: Yes Status: Chronic Qualifiers: Depression Type: major depressive disorder Code(s): F32.9 - MAJOR DEPRESSIVE DISORDER, SINGLE EPISODE, UNSPECIFIED (10) S/P CABG (coronary artery bypass graft) Current Visit: Yes Status: Chronic Code(s): Z95.1 - PRESENCE OF AORTOCORONARY BYPASS GRAFT
[2016-08-19] MEDS: REMERON 30 MG PO SCH (22:08)
[2016-08-20] MEDS: Phenergan 25 MG INJ IV PRN ×3 (01:15→13:09)
[2016-08-20] MEDS: Zofran 4 MG/2 ML VIAL IV PRN ×2 (04:27→16:38)
[2016-08-20] MEDS: PATIENT OWN MEDICATION SL SCH ×2 (06:22→13:26)
[2016-08-20] MEDS: Reglan 10 MG/2 ML IV SCH (08:48)
[2016-08-20] MEDS: PATIENT OWN MEDICATION PO SCH ×2 (09:36→13:33)
[2016-08-20] MEDS: Klor Con 10 MEQ PO SCH (09:36)
[2016-08-20] MEDS: ELIQUIS PO SCH (09:36)
[2016-08-20] MEDS: VITAMIN B-1 100 MG PO SCH (09:37)
[2016-08-20] MEDS: Protonix 40MG Tablet PO SCH (09:37)
[2016-08-20] MEDS: VITA-BEE WITH C PO SCH (09:37)
--- NOTE | 2016-08-20 13:21 | PCM.DCORD ---
- Discharge Discharge Date: 08/20/16 Disposition: XFER OTHER Condition: Poor Prescriptions: New Metoclopramide HCl 10 mg [Reglan 10 MG] 10 mg PO TID #90 tablet Mirtazapine [Remeron] 45 mg PO HS #30 tablet Acetaminophen 325 mg [Tylenol 325 mg] 650 mg PO Q4H PRN PRN #0 tablet PRN Reason: Pain And/Or Fever Continue Buprenorphine HCl/Naloxone HCl [Suboxone 8 mg-2 mg Sl Film] 0.5 film SL TID Lacosamide [Vimpat] 100 mg PO BID Omeprazole 20 MG [Prilosec 20 mg] 20 mg PO DAILY Potassium Chloride 10 Meq Tab* [Klor Con 10 MEQ] 10 meq PO BID Ondansetron HCl [Zofran] 8 mg PO Q6-8HPRN PRN PRN Reason: Nausea/Vomiting Cyproheptadine HCl 4 mg PO HSPRN PRN PRN Reason: Insomnia Vitamin B Complex 1 each PO DAILY Cholecalciferol (Vitamin D3) [Vitamin D] 1,000 unit PO WEEKLY Changed Apixaban [Eliquis] 2.5 mg PO BID #60 tablet Discontinued Magnesium Chloride 64 mg [Slow-Mag 64 MG] 400 mg PO DAILY Mirtazapine 30 mg [Remeron 30 mg] 30 mg PO HS Olanzapine [Zyprexa] 10 mg PO HS Hydroxyzine HCl 25 mg [Atarax 25 mg] 25 mg PO TID Magnesium Chloride 64 mg [Slow-Mag 64 MG] 64 mg PO TID Instructions: Urinary Tract Infection (UTI) Additional Instructions: home with hospice services Follow up with: LUNA SHAH [Primary Care Provider] - Forms: Discharge Instructions
--- NOTE | 2016-08-20 13:32 | PCM.DS ---
Discharge Summary Date of Admission: 08/12/16 18:00 Date of Discharge: 08/20/16 Admitting Physician: LUNA SHAH Consults: Consults on Case 08/13/16 06:53 Diet Consult [Nutritional Consult] ROUTINE 08/14/16 11:31 Nutritional Consult ROUTINE Primary Care Provider: LUNA SHAH Allergies Allergies latex [Latex] Allergy (Intermediate, Verified 06/21/16 15:50) Hives fentanyl Allergy (Mild, Verified 06/21/16 15:50) Itching PATIENT STATES WHEN SHE WEARS FENTANYL PATCHES HER SKIN BECOMES ITCHY hydralazine Allergy (Verified 06/21/16 15:50) hydrocortisone Adverse Reaction (Verified 08/12/16 09:03) Hospital Summary - Hospital Course Hospital Course: complicated coarse with multiple prior abdominal surgeries eventually resulting in a 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 She reportedly was [place] the [place] but at last minute patient refused. She has had persistent severe worsening. She was getting weaker at home and being cared for by an 82 y/o woman who could no longer do it. She was worsening started getting swelling was not eating at all was vomiting if she would eat anything and too weak to move. She was brought to the ED found to have swelling from severe protein malnutrition. We attempted NG feedings at 20 mL/h but she vomited these back up and did not tolerate. This was pulled and she was started on TPN. She tolerated the TPN but was only able to take small amounts in po. She continued to have vomiting. She was on Reglan 10 mg TID IV without any change. Her swelling improved a little on the TPN. Her anemia worsened and was transfused PRBC. We attempted to find a facility for her placement to continue the TPN and work on improving her gut function and her status enough to possibly get her to another tertiary center for another opinion; however no facility would accept her due to cost with the TPN. She had long discussions with discharge planning and her and she wants to go home with hospice she does not want to go through more tests or procedures and has been told she was dying from this for many years. We will work on hospice services and d/c the tpn but continue to encourage po intake as tolerated start Reglan at home, with this will d/c her Zyprexa and increase her remron. She had a DVT when she was on megace in the past with her size and anemia her eliquis was decreased to 2.5 mg bid. 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 She had a UTI that was treated with 7 days of rocephin IV in the hospital. - Vitals & Intake/Output Vital Signs: Vital Signs Temperature 98.1 F 08/20/16 11:21 Pulse Rate 72 08/20/16 11:21 Respiratory Rate 18 08/20/16 11:21 Blood Pressure 121/72 08/20/16 11:21 O2 Sat by Pulse Oximetry 95 08/20/16 11:21 Oxygen-Last Documented O2 Percentage 2 Liters = 28% Intake & Output: Intake & Output 08/18/16 08/19/16 08/20/16 08/21/16 11:59 11:59 11:59 11:59 Intake Total 817 440 Output Total 1300 1800 Balance -483 -1360 Weight 35.743 kg 37.603 kg - Lab Result Diagrams: 08/19/16 05:32 08/19/16 05:32 - Procedures and Test Procedures and Tests throughout Hospitalization: Therapy Orders & Screens 08/15/16 20:30 Oxygen NASAL CANNULA 2 lpm Comment: Diagnosis: uti Discharge Exam General Appearance: thin Neurologic Exam: alert, oriented x 3, cooperative Skin Exam: warm, dry Ears, Nose, Throat Exam: dry mucous membranes Neck Exam: non-tender, supple Respiratory Exam: normal breath sounds, lungs clear Cardiovascular Exam: regular rate/rhythm, normal heart sounds Gastrointestinal/Abdomen Exam: soft, normal bowel sounds, No tenderness, No distention Extremity Exam: pedal edema (bilateral pedal and elbow edema slightly improved.) Final Diagnosis/Problem List - Final Discharge Diagnosis/Problem (1) Severe protein-calorie malnutrition Current Visit: Yes Status: Acute (2) Anemia Current Visit: Yes Status: Chronic (3) UTI (urinary tract infection) Current Visit: Yes Status: Resolved (4) Dehydration Current Visit: Yes Status: Acute (5) Weakness Current Visit: Yes Status: Acute (6) Short gut syndrome Current Visit: Yes Status: Chronic (7) Seizure disorder Current Visit: Yes Status: Chronic (8) Nutritional disorder Current Visit: Yes Status: Chronic (9) Depression Current Visit: Yes Status: Chronic (10) S/P CABG (coronary artery bypass graft) Current Visit: Yes Status: Chronic - Discharge Discharge Date: 08/20/16 Disposition: XFER OTHER Condition: Poor Prescriptions: New Metoclopramide HCl 10 mg [Reglan 10 MG] 10 mg PO TID #90 tablet Mirtazapine [Remeron] 45 mg PO HS #30 tablet Acetaminophen 325 mg [Tylenol 325 mg] 650 mg PO Q4H PRN PRN #0 tablet PRN Reason: Pain And/Or Fever Continue Buprenorphine HCl/Naloxone HCl [Suboxone 8 mg-2 mg Sl Film] 0.5 film SL TID Lacosamide [Vimpat] 100 mg PO BID Omeprazole 20 MG [Prilosec 20 mg] 20 mg PO DAILY Potassium Chloride 10 Meq Tab* [Klor Con 10 MEQ] 10 meq PO BID Ondansetron HCl [Zofran] 8 mg PO Q6-8HPRN PRN PRN Reason: Nausea/Vomiting Cyproheptadine HCl 4 mg PO HSPRN PRN PRN Reason: Insomnia Vitamin B Complex 1 each PO DAILY Cholecalciferol (Vitamin D3) [Vitamin D] 1,000 unit PO WEEKLY Changed Apixaban [Eliquis] 2.5 mg PO BID #60 tablet Discontinued Magnesium Chloride 64 mg [Slow-Mag 64 MG] 400 mg PO DAILY Mirtazapine 30 mg [Remeron 30 mg] 30 mg PO HS Olanzapine [Zyprexa] 10 mg PO HS Hydroxyzine HCl 25 mg [Atarax 25 mg] 25 mg PO TID Magnesium Chloride 64 mg [Slow-Mag 64 MG] 64 mg PO TID Instructions: Urinary Tract Infection (UTI) Additional Instructions: home with hospice services Follow up with: LUNA SHAH [Primary Care Provider] - Forms: Discharge Instructions
[2016-08-20 13:39] LABS: Blood Bank Reference Report SEE SEPARATE REPORT
[2016-08-20] MEDS: INTRALIPID 20% 250 ML 250 ML, TPN Electrolytes 40 ML, Multitrace-4 Conc Vial 1 ML*** 1 ... IV SCH ×12 (14:32)
[2016-08-20 16:25] VITALS: BP 139/85; PULSE 82; O2SAT 96
== END 2016-08-20 17:25 | disposition hospice, home (50) | DRG 641 ==
LOC: ED 08:46 → MED SURG 11:45 → OBSVTOIN 18:00
PROVIDERS: ADMIT Family Medicine; ATTEND Family Medicine
DX: E43 Unspecified severe protein-calorie malnutrition (principal); N39.0 Urinary tract infection, site not specified; K91.2 Postsurgical malabsorption, not elsewhere classified; I25.810 Atherosclerosis of coronary artery bypass graft(s) without angina pectoris; D64.9 Anemia, unspecified; E86.0 Dehydration; R53.1 Weakness; G40.909 Epilepsy, unspecified, not intractable, without status epilepticus; E63.9 Nutritional deficiency, unspecified; F32.9 Major depressive disorder, single episode, unspecified; J44.9 Chronic obstructive pulmonary disease, unspecified; I25.2 Old myocardial infarction; M79.7 Fibromyalgia; F41.9 Anxiety disorder, unspecified; N80.9 Endometriosis, unspecified; G89.4 Chronic pain syndrome; D63.8 Anemia in other chronic diseases classified elsewhere; D50.9 Iron deficiency anemia, unspecified; Z79.899 Other long term (current) drug therapy
CPT/HCPCS: 36000; 36415; 36430; 36591; 80048; 80053; 81000; 82040; 82150; 82607; 82728; 82746; 83540; 83550; 83605; 83690; 83735; 84100; 84132; 84155; 85014; 85018; 85025; 85027; 86850; 86870; 86900; 86901; 86922; 94760; 96360; 96361; 96365; 99285; J0610; J0696; J1756; J1815; J2405; J2550; J3475; J3480; P9016; P9612; A9270-GY